=== PATIENT | female | born 1960 | race Caucasian/White ===

== ENCOUNTER → 2017-04-18 15:47 | Outpatient (REF) | payer BC, MEDICARE, SELFPAY ==
[2017-04-18 19:12] LABS: Alanine Aminotransferase 27 U/L (12-78); Albumin Level 3.7 gm/dL (3.4-5.0); Alkaline Phosphatase 91 U/L (46-116); Anion Gap 13.4 mEq/L (5-15); Aspartate Amino Transferase 21 U/L (15-37); Bilirubin,Total 0.2 mg/dL (0.2-1.0); Blood Urea Nitrogen 24 mg/dL (7-18); Calcium 8.5 mg/dL (8.5-10.1); Carbon Dioxide 28 mmol/L (21.0-32.0); Chloride 102 mmol/L (98-107); Creatinine,Serum 1.43 mg/dL (0.55-1.02); Estimated Glomerular Filt Rate 38 ml/min (>60); GFR (African American) 46 ML/MIN (>60); Globulin 3.8 gm/dl (1.3-3.2); Glucose 103 mg/dL (74-106); Potassium 4.4 mmoL/L (3.5-5.1); Sodium 139 mmol/L (136-145); Total Protein,Serum 7.5 gm/dL (6.4-8.2)
== END ==
LOC: LAB 15:47
PROVIDERS: Visit Provider Emergency Medicine
DX: R53.83 Other fatigue (principal)
CPT/HCPCS: 80053

== ENCOUNTER 2021-11-24 12:20 | Emergency (ER) | payer MEDICARE, SELFPAY ==
[2021-11-24] VITALS (9 sets, daily range): BP systolic 95–133; BP diastolic 61–80; PULSE 60–69; RESP 8–18; TEMP 36.8; O2SAT 95–98; BMI 23.0
--- NOTE | 2021-11-24 12:53 | PC.NURSE ---
CRISTOPHER CHERRY at
--- NOTE | 2021-11-24 13:01 | HMH.EDGENADL ---
Discharge Plan Disposition Chief Complaint: Overdose Prescriptions Prescriptions: No Action docusate sodium [Stool Softener] 100 mg capsule 100 mg PO QDAY clonidine HCl 0.1 mg tablet 0.1 mg PO BID Qty: 180 0RF nifedipine 60 mg tablet extended release 24hr 60 mg PO QDAY Qty: 90 0RF hydrochlorothiazide 25 mg tablet 25 mg PO QDAY Qty: 90 0RF quetiapine 100 mg tablet 100 mg PO QHS Qty: 90 0RF hydroxyzine HCl 50 mg tablet 50 mg PO TID-QID PRN (Reason: anxiety) Qty: 90 0RF tizanidine 4 mg tablet 4 mg PO TID PRN (Reason: muscle spasticity) Qty: 90 0RF gabapentin 100 mg capsule 100 mg PO TID Qty: 21 0RF Rx Instructions: Step 1 fentanyl 25 mcg/hr patch 72 hour 1 patch TD Q72H Qty: 10 0RF gabapentin 300 mg capsule 300 mg PO TID Qty: 90 2RF Referrals Follow up/Referrals: Provider,Referral, MD [Referring] - See instructions Activity Restrictions/Add. Instructions Additional Instructions/Restrictions: At this time was felt you are safe to be discharged home back to her nursing care facility. Please have your doctor evaluate your elevated kidney function. Please refrain from chewing on your fentanyl patches. If new or worsening symptoms please not hesitate to return for continued evaluation. Clinical Impressions Clinical Impression: Opiate or related narcotic overdose, Creatinine elevation Discharge ED Provider: Mehdi Mccollum General Adult HPI General Chief complaint: Overdose Stated complaint: ingestion Time Seen by Provider: 11/24/21 12:55 History of Present Illness HPI narrative: Patient is a 61-year-old female with past medical history of type 2 diabetes, hypothyroidism, prior CVA who presents to the emergency department for evaluation of toxic ingestion. Onset was acute, 30 minutes prior to arrival patient was found with her fentanyl patch in her mouth. Fentanyl patch was stated as 25 mcg however duration of action was for 3 days. Upon arrival patient has low respirations, is rousable to voice. Related Data Home Medications Medication Instructions Recorded Confirmed docusate sodium 100 mg capsule 100 mg PO QDAY 04/18/17 (Stool Softener) Previous Rx's Medication Instructions Recorded clonidine HCl 0.1 mg tablet 0.1 mg PO BID #180 tabs 06/20/18 hydrochlorothiazide 25 mg tablet 25 mg PO QDAY #90 tabs 06/20/18 nifedipine 60 mg tablet,extended 60 mg PO QDAY #90 tabs 06/20/18 release 24 hr quetiapine 100 mg tablet 100 mg PO QHS #90 tabs 06/20/18 hydroxyzine HCl 50 mg tablet 50 mg PO TID-QID PRN anxiety #90 09/20/18 tabs tizanidine 4 mg tablet 4 mg PO TID PRN muscle spasticity 09/20/18 #90 tabs gabapentin 100 mg capsule 100 mg PO TID #21 caps 10/11/21 fentanyl 25 mcg/hr transdermal 1 patch transdermal Q72H #10 ea 10/25/21 patch gabapentin 300 mg capsule 300 mg PO TID #90 caps 11/12/21 Allergies Allergy/AdvReac Type Severity Reaction Status Date / Time adhesive tape Allergy Unknown Verified 04/18/17 15:27 cyclobenzaprine Allergy Unknown Verified 04/18/17 15:27 [CYCLOBENZAPRINE] hyoscyamine [HYOSCYAMINE] Allergy Unknown Verified 04/18/17 15:27 latex [LATEX] Allergy Unknown Verified 04/18/17 15:27 methocarbamol [METHOCARBAMOL] Allergy Unknown Verified 04/18/17 15:27 PFSH PFSH Social History Smoking Status: Never smoker alcohol intake: never substance use type: former substance user, marijuana, opiates and prescription drug current occupational status: unemployed ROS Obtained: Yes All systems reviewed & no additional complaints except as documented Physical Exam General General appearance: in no apparent distress and lethargic Head Head exam: atraumatic and normocephalic Eye Eye exam: Present PERRL and EOMI ENT ENT exam: Present mucous membranes moist Neck Neck exam: Present normal inspection Chest Chest inspection: Present normal inspection and symmetric chest wall rise Respiratory Respira
[2021-11-24 13:17] LABS: Alanine Aminotransferase 13 U/L (12-78); Albumin Level 2.5 g/dl (3.5-5.0); Albumin/Globulin Ratio 0.7 (1.1-1.8); Alkaline Phosphatase 219 U/L (38-126); Anion Gap 11.1 mEq/L (5-15); Aspartate Amino Transferase 19 U/L (14-36); Blood Urea Nitrogen 47 mg/dl (7-17); Carbon Dioxide 20 mmol/L (22.0-30.0); Chloride 113 mmol/L (98-107); Creatinine Clearance Estimated 22 mL/min (50-200); Estimated Glomerular Filt Rate 20 ml/min (>60); GFR (African American) 24 ML/MIN (>60); Globulin 3.7 g/dL (1.3-3.2); Glucose 94 mg/dl (74-100); Potassium 5.1 mmoL/L (3.5-5.1); Sodium 139 mmol/L (136-145); Total Protein,Serum 6.2 g/dl (6.3-8.2)
[2021-11-24 13:19] LABS: Basophils # 0.1 K/mm3 (0-0.2); Basophils % 0.7 % (0.1-2.0); Eosinophils # 0.1 K/mm3 (0.0-0.4); Eosinophils % 1.9 % (0.1-12.0); Hematocrit 30.4 % (37.0-47.0); Hemoglobin 9.1 g/dL (12.2-16.2); Lymphocytes # 1.4 K/mm3 (0.7-4.5); Lymphocytes % 19.9 % (10-50); Mean Corpuscular HGB Conc 29.8 g/dL (31.8-35.4); Mean Corpuscular Hemoglobin 33.1 pg (27.0-31.2); Mean Corpuscular Volume 110.9 fl (81-99); Mean Platelet Volume 8.5 fl (7.4-10.4); Monocytes # 0.3 K/mm3 (0.1-1.0); Monocytes % 4.1 % (1.7-9.3); Neutrophils # 5.2 K/mm3 (1.8-7.8); Neutrophils % 73.5 % (37.0-80.0); Platelet Count 509 K/mm3 (142-424); Red Blood Count 2.74 M/mm3 (4.20-5.40); Red Cell Distribution Width 18.6 % (11.5-17.5); White Blood Count 7.1 K/mm3 (4.8-10.8)
[2021-11-24 13:20] LABS: Bilirubin,Total < 0.1 mg/dl (0.2-1.3)
--- NOTE | 2021-11-24 14:06 | ECG_ITS ---
APPROVED REPORT Exam: Resting ECG HR:64 bpm ECG Measurements Heart Rate 64 AXES PA 155 P 79 QRSd 86 QRS 85 QT 408 T 85 QTc 417 Conclusion SINUS RHYTHM NORMAL ECG UNCONFIRMED REPORT Electronically signed by : Sukhwinder Schilling MD 11/25/2021 11:24:46
--- NOTE | 2021-11-24 14:32 | PC.NURSE ---
checked on pt at this time, offered pt a lunch tray pt declined but states would take a drink. ER MD okayed for pt to have something to drink. Notified ER MD pt is awake, alert and oriented and asked when she can go back to the [place] [facility].
--- NOTE | 2021-11-24 15:55 | PC.NURSE ---
rounded on pt. pt asked how much loger they were gonna be here. Checked with the ER doctor and he advised to tell her that she would be here at least another hour due to her condition at this time.
== END 2021-11-24 18:30 | disposition home or self-care (01) ==
PROVIDERS: Emergency Provider Emergency Medicine; PCP Emergency Medicine
DX: T40.411A Poisoning by fentanyl or fentanyl analogs, accidental (unintentional), initial encounter (principal)
CPT/HCPCS: 80053; 85025; 93005; 99284; J2310

== ENCOUNTER 2022-03-26 12:54 | Inpatient (IN) | payer MEDICARE, MEDICAID, SELFPAY ==
[2022-03-26] VITALS (13 sets, daily range): BP systolic 125–155; BP diastolic 66–92; PULSE 72–86; RESP 11–22; TEMP 36.4–37.3; O2SAT 95–100; BMI 23.0; BMI 24.7
--- NOTE | 2022-03-26 12:58 | XR_ITS ---
PROCEDURE INFORMATION: Exam: XR Chest Exam date and time: 03/26/2022 1:14 PM Age: 61 years old Clinical indication: Shortness of breath; Additional info: Sob/cp TECHNIQUE: Imaging protocol: Radiologic exam of the chest. Views: 1 view. COMPARISON: No relevant prior studies available. FINDINGS: Lungs: Right upper lobe and right lower lobe consolidations, worrisome for multifactorial pneumonia. Pleural spaces: No pleural effusion or pneumothorax Heart/Mediastinum: Aortic atherosclerosis. No cardiomegaly. Bones/joints: Unremarkable. IMPRESSION: 1. Right upper lobe and right lower lobe consolidations, worrisome for multifactorial pneumonia. 2. No pleural effusion or pneumothorax
[2022-03-26 13:06] LABS: Influenza A, PCR Not Detected (NotDetected); Influenza B, PCR Not Detected (NotDetected)
--- NOTE | 2022-03-26 13:11 | ECG_ITS ---
APPROVED REPORT Exam: Resting ECG HR:71 bpm ECG Measurements Heart Rate 71 AXES SD 156 P 46 QRSd 93 QRS 76 QT 408 T 3 QTc 430 Conclusion SINUS RHYTHM INCOMPLETE RIGHT BUNDLE BRANCH BLOCK [90+ ms QRS DURATION, TERMINAL R IN V1/V2, 40+ ms S IN I/aVL/V4/V5/V6] NONSPECIFIC T-WAVE ABNORMALITY BORDERLINE ECG UNCONFIRMED REPORT Electronically signed by : Sukhwinder Schilling MD 03/28/2022 20:04:15
[2022-03-26 13:31] LABS: Coronavirus 19, PCR Detected (NotDetected)
--- NOTE | 2022-03-26 13:36 | HMH.EDGENADL ---
Discharge Plan Disposition Patient Disposition: Admitted As Inpatient Condition: Fair Chief Complaint: Shortness of Breath/Dyspnea Prescriptions Prescriptions: No Action docusate sodium [Stool Softener] 100 mg capsule 100 mg PO QDAY clonidine HCl 0.1 mg tablet 0.1 mg PO BID Qty: 180 0RF nifedipine 60 mg tablet extended release 24hr 60 mg PO QDAY Qty: 90 0RF hydrochlorothiazide 25 mg tablet 25 mg PO QDAY Qty: 90 0RF quetiapine 100 mg tablet 100 mg PO QHS Qty: 90 0RF hydroxyzine HCl 50 mg tablet 50 mg PO TID-QID PRN (Reason: anxiety) Qty: 90 0RF tizanidine 4 mg tablet 4 mg PO TID PRN (Reason: muscle spasticity) Qty: 90 0RF gabapentin 100 mg capsule 100 mg PO TID Qty: 21 0RF Rx Instructions: Step 1 fentanyl 25 mcg/hr patch 72 hour 1 patch TD Q72H Qty: 10 0RF clonazepam [Klonopin] 0.5 mg tablet 0.5 mg PO BID Qty: 60 2RF gabapentin 300 mg capsule 300 mg PO TID Qty: 90 2RF hydrocodone-acetaminophen 5-325 mg tablet 1 tab PO BID Qty: 60 0RF Referrals Follow up/Referrals: Provider,Referral, MD [Referring] - See instructions Clinical Impressions Clinical Impression: Multifocal pneumonia, COVID-19, Acute respiratory failure with hypoxia, Acute on chronic renal failure, Hypomagnesemia Discharge ED Provider: Cristian Nichole General Adult HPI General Chief complaint: Shortness of Breath/Dyspnea Stated complaint: shortness of breathe Time Seen by Provider: 03/26/22 12:58 Mode of Arrival: EMS History of Present Illness HPI narrative: 61-year-old female from nursing facility, past history of CVA, chronic renal failure, mild dysplastic syndrome. Presents with shortness of breath and hypoxia was noted to be hypoxic on room air, is not usually on oxygen. Is currently on 3 L/min via nasal cannula and running in the mid 90s. She reports cough, subjective fever, subjective dyspnea. Denies any chest pain, nausea, vomiting. Symptoms are worse with exertion. At time of interview, she does ask me if she can go out and have a cigarette. Related Data Home Medications Medication Instructions Recorded Confirmed docusate sodium 100 mg capsule 100 mg PO QDAY 04/18/17 02/21/22 (Stool Softener) Previous Rx's Medication Instructions Recorded clonidine HCl 0.1 mg tablet 0.1 mg PO BID #180 tabs 06/20/18 hydrochlorothiazide 25 mg tablet 25 mg PO QDAY #90 tabs 06/20/18 nifedipine 60 mg tablet,extended 60 mg PO QDAY #90 tabs 06/20/18 release 24 hr quetiapine 100 mg tablet 100 mg PO QHS #90 tabs 06/20/18 hydroxyzine HCl 50 mg tablet 50 mg PO TID-QID PRN anxiety #90 09/20/18 tabs tizanidine 4 mg tablet 4 mg PO TID PRN muscle spasticity 09/20/18 #90 tabs gabapentin 100 mg capsule 100 mg PO TID #21 caps 10/11/21 fentanyl 25 mcg/hr transdermal 1 patch transdermal Q72H #10 ea 10/25/21 patch clonazepam 0.5 mg tablet (Klonopin) 0.5 mg PO BID #60 tabs 12/13/21 gabapentin 300 mg capsule 300 mg PO TID #90 caps 02/11/22 hydrocodone 5 mg-acetaminophen 325 1 tab PO BID #60 tabs 03/17/22 mg tablet Allergies Allergy/AdvReac Type Severity Reaction Status Date / Time adhesive tape Allergy Unknown Verified 02/21/22 18:37 cyclobenzaprine Allergy Unknown Verified 02/21/22 18:37 [CYCLOBENZAPRINE] hyoscyamine [HYOSCYAMINE] Allergy Unknown Verified 02/21/22 18:37 latex [LATEX] Allergy Unknown Verified 02/21/22 18:37 methocarbamol [METHOCARBAMOL] Allergy Unknown Verified 02/21/22 18:37 [facility] Disclaimer: The information contained in this section may have been updated after the patient was seen, as this information can be updated by other users. Social History Smoking Status: Current every day smoker tobacco type: cigarettes packs per day: 1 alcohol intake: never substance use type: former substance user, marijuana, opiates and prescription drug current occupational status: unemployed Tra
[2022-03-26 15:14] LABS: Basophils % 0.4 % (0.1-2.0); Eosinophils % 0.5 % (0.1-12.0); Hematocrit 28.9 % (37.0-47.0); Lymphocytes # 0.9 K/mm3 (0.7-4.5); Lymphocytes % 19.2 % (10-50); Mean Corpuscular Hemoglobin 32.7 pg (27.0-31.2); Mean Corpuscular Volume 105.5 fl (81-99); Mean Platelet Volume 8.3 fl (7.4-10.4); Monocytes # 0.3 K/mm3 (0.1-1.0); Monocytes % 5.7 % (1.7-9.3); Neutrophils # 3.6 K/mm3 (1.8-7.8); Neutrophils % 74.3 % (37.0-80.0); Platelet Count 275 K/mm3 (142-424); Red Blood Count 2.74 M/mm3 (4.20-5.40); White Blood Count 4.8 K/mm3 (4.8-10.8)
[2022-03-26 15:17] LABS: Chloride 109 mmol/L (98-107); Potassium 4.2 mmoL/L (3.5-5.1); Sodium 140 mmol/L (136-145)
[2022-03-26 15:20] LABS: Alanine Aminotransferase 9 U/L (12-78); Albumin/Globulin Ratio 0.8 (1.1-1.8); Alkaline Phosphatase 116 U/L (38-126); Anion Gap 13.2 mEq/L (5-15); Aspartate Amino Transferase 21 U/L (14-36); Bilirubin,Total 0.4 mg/dl (0.2-1.3); Blood Urea Nitrogen 58 mg/dl (7-17); Calcium 7.1 mg/dl (8.4-10.2); Carbon Dioxide 22 mmol/L (22.0-30.0); Creatinine Clearance Estimated 11 mL/min (50-200); Estimated Glomerular Filt Rate 9 ml/min (>60); GFR (African American) 11 ML/MIN (>60); Globulin 3.6 g/dL (1.3-3.2); Glucose 94 mg/dl (74-100); Total Protein,Serum 6.6 g/dl (6.3-8.2)
[2022-03-26 15:21] LABS: Magnesium 1.2 mg/dl (1.6-2.3)
[2022-03-26 15:30] LABS: Lactic Acid < 0.5 mmol/L (0.7-2.1); NT Pro Brain Natriuretic Pep. 12500 pg/mL (0-125)
--- NOTE | 2022-03-26 15:31 | PC.NURSE ---
critical lab called. notified
[2022-03-26 15:33] LABS: Troponin I 0.02 ng/ml (0.00-0.034)
--- NOTE | 2022-03-26 15:50 | PC.NURSE ---
ER waiting carbonizer tester back from dr. hull
--- NOTE | 2022-03-26 16:00 | PC.NURSE ---
workers' compensation claims supervisor Agustina notified of admission
[2022-03-26 16:05] LABS: Procalcitonin 0.694 ng/mL (0.0-2.0)
[2022-03-26 16:14] LABS: VBG Base Excess -9.2 mmol/L (-2.4-2.3); VBG Oxygen Saturation 93.3 % (50-70); VBG PO2 73.5 mmol/L (28-40); VBG Total CO2 20.6 mmol/L (23-27)
[2022-03-26 16:19] LABS: VBG PH 7.19 mmol/L (7.31-7.41)
[2022-03-26 16:20] LABS: VBG PCO2 51.3 mmol/L (35-51)
--- NOTE | 2022-03-26 18:05 | EXP.HP ---
History of Present Illness *Admission Date: 03/26/22 *Reason for visit:: Shortness of breath *History of present illness: Ms. Dupree is a 61-year-old female who resides at a long-term nursing facility. Past history of right-sided CVA with left-sided deficits, chronic kidney disease, myelo dysplastic syndrome, tobacco use disorder, chronic pain, and protein in who presented to the ER from her facility due to increased shortness of breath and hypoxia. Generally on room air at her [facility]. Requiring 3 L via nasal cannula on arrival to the ER. Reports that she has had a cough, subjective fevers, and worsening shortness of breath. Denies any chest pain, nausea, vomiting, confusion. Symptoms worse with exertion. She gets around in a wheelchair due to her left-sided paralysis. Continues to smoke. On work-up chest imaging concerning for multifocal pneumonia. Positive for COVID. Blood gas obtained showing respiratory acidosis on VBG. Transition to BiPAP. Medicine consulted for admission. On interview, patient is initially laying in bed covered by a blanket. Tolerating BiPAP. Has not had any further history from above. No new complaints. Hemodynamically stable. [facility] Disclaimer: The information contained in this section may have been updated after the patient was seen, as this information can be updated by other users. Medical History (Updated 03/26/22 @ 18:33 by Guillermo Bertrand MD) Chronic back pain greater than 3 months duration CKD (chronic kidney disease) CVA (cerebral vascular accident) Myelodysplastic syndrome Social History Smoking Status: Current every day smoker tobacco type: cigarettes packs per day: 1 alcohol intake: never substance use type: former substance user, marijuana, opiates and prescription drug current occupational status: unemployed Travel in the last 8 weeks: None Review of Systems Review of Systems Review of systems (narrative): 14 point review of systems performed, pertinent positives and negatives as per HPI *Neurologic Neurologic: Reports system reviewed and no additional complaints, except as documented Meds Home Medications and Allergies Home Medications Medication Instructions Recorded Confirmed Type amlodipine 10 mg tablet 10 mg PO DAILY blood pressure 03/26/22 03/26/22 History apixaban 2.5 mg tablet (Eliquis) 2.5 mg PO BID Blood thinner 03/26/22 03/26/22 History carvedilol 3.125 mg tablet 3.125 mg PO BID blood pressure 03/26/22 03/26/22 History clonazepam 0.5 mg tablet (Klonopin) 0.5 mg PO BID Anxiety 03/26/22 03/26/22 History duloxetine 30 mg capsule,delayed 30 mg PO DAILY mood 03/26/22 03/26/22 History release gabapentin 300 mg capsule 300 mg PO TID Pain 03/26/22 03/26/22 History hydrocodone 5 mg-acetaminophen 325 1 tab PO BID Pain 03/26/22 03/26/22 History mg tablet levothyroxine 75 mcg tablet 75 mcg PO DAILY per md 03/26/22 03/26/22 History lisinopril 5 mg tablet 5 mg PO DAILY blood pressure 03/26/22 03/26/22 History pantoprazole 40 mg tablet,delayed 40 mg PO DAILY GERD 03/26/22 03/26/22 History release (Protonix) quetiapine 100 mg tablet 100 mg PO QHS mood 03/26/22 03/26/22 History New Prescriptions to Start Prescriptions: Allergies Allergy/AdvReac Type Severity Reaction Status Date / Time adhesive tape Allergy Unknown Verified 02/21/22 18:37 cyclobenzaprine Allergy Unknown Verified 02/21/22 18:37 [CYCLOBENZAPRINE] hyoscyamine [HYOSCYAMINE] Allergy Unknown Verified 02/21/22 18:37 latex [LATEX] Allergy Unknown Verified 02/21/22 18:37 methocarbamol [METHOCARBAMOL] Allergy Unknown Verified 02/21/22 18:37 Exam Data for Last 24 hours Vital signs and Labs for Last 24 Hours: Temp Pulse Resp BP Pulse Ox 98.5 F 78 20 147/76 H 97 03/26/22 13:00 03/26/22 17:00 03/26/22 17:00 03/26/22 17:00 03/26/22 17:00 Laboratory Results - last 24 hr 03/26/22 13:02: SARS-CoV-2 (PCR)
[2022-03-26 18:14] LABS: Troponin I 0.02 ng/ml (0.00-0.034)
--- NOTE | 2022-03-26 18:32 | PC.NURSE ---
called suresh comer rn
--- NOTE | 2022-03-26 18:57 | PC.NURSE ---
Pt arrived to the floor at this time.
[2022-03-26 19:50] LABS: ABG Base Excess -7.3 mmol/L (-2.4-2.3); ABG HCO3 18.9 mmhg (22.0-26.0); ABG Oxygen Saturation 98 % (90-100); ABG PCO2 38.3 mmhg (35.0-45.0); ABG PH 7.31 mmol/L (7.35-7.45); ABG PO2 103.4 mmhg (80-100); ABG TCO2 20.1 mmhg (23-27); Allen's Test Y; Oxygen 35 %; Source Right Radial; Vent Rate 22
[2022-03-26 19:59] LABS: Troponin I 0.01 ng/ml (0.00-0.034)
--- NOTE | 2022-03-26 21:32 | PC.NURSE ---
yvonne locke notified this rn could remove bipap and place on nasal cannula, pt was on room air for about 10 minutes with sats in 90's, but did dip down into high 80's so place 2LNC on pt and sats 95%
[2022-03-26 23:00] LABS: Anion Gap 13.7 mEq/L (5-15); Blood Urea Nitrogen 69 mg/dl (7-17); Carbon Dioxide 19 mmol/L (22.0-30.0); Chloride 112 mmol/L (98-107); Creatinine Clearance Estimated 12 mL/min (50-200); Estimated Glomerular Filt Rate 9 ml/min (>60); GFR (African American) 10 ML/MIN (>60); Glucose 128 mg/dl (74-100); Potassium 4.7 mmoL/L (3.5-5.1); Sodium 140 mmol/L (136-145)
[2022-03-27] VITALS (10 sets, daily range): BP systolic 124–164; BP diastolic 67–89; PULSE 66–80; RESP 8–20; TEMP 36.5–36.8; O2SAT 94–100; BMI 24.5
[2022-03-27 03:24] LABS: Chloride 112 mmol/L (98-107); Potassium 4.9 mmoL/L (3.5-5.1); Sodium 139 mmol/L (136-145)
[2022-03-27 03:27] LABS: Blood Urea Nitrogen 63 mg/dl (7-17); Creatinine Clearance Estimated 12 mL/min (50-200); Estimated Glomerular Filt Rate 9 ml/min (>60)
[2022-03-27 03:28] LABS: Anion Gap 13.9 mEq/L (5-15); Carbon Dioxide 18 mmol/L (22.0-30.0); Glucose 135 mg/dl (74-100)
[2022-03-27 03:30] LABS: GFR (African American) 11 ML/MIN (>60)
[2022-03-27 08:14] LABS: Chloride 114 mmol/L (98-107); Potassium 5.3 mmoL/L (3.5-5.1); Sodium 139 mmol/L (136-145)
[2022-03-27 08:17] LABS: Alanine Aminotransferase 7 U/L (12-78); Albumin Level 2.6 g/dl (3.5-5.0); Albumin/Globulin Ratio 0.8 (1.1-1.8); Alkaline Phosphatase 80 U/L (38-126); Aspartate Amino Transferase 29 U/L (14-36); Bilirubin,Total 0.6 mg/dl (0.2-1.3); Blood Urea Nitrogen 62 mg/dl (7-17); Calcium 7.3 mg/dl (8.4-10.2); Carbon Dioxide 14 mmol/L (22.0-30.0); Creatinine Clearance Estimated 12 mL/min (50-200); Estimated Glomerular Filt Rate 9 ml/min (>60); GFR (African American) 11 ML/MIN (>60); Globulin 3.3 g/dL (1.3-3.2); Glucose 138 mg/dl (74-100); Total Protein,Serum 5.9 g/dl (6.3-8.2)
[2022-03-27 08:18] LABS: Magnesium 1.6 mg/dl (1.6-2.3)
[2022-03-27 08:27] LABS: Anion Gap 16.3 mEq/L (5-15)
--- NOTE | 2022-03-27 11:00 | HMH.PHAINT1 ---
Pharmacy Intervention Comments: verified home medicaiton list using list from outpatient pharmacy
--- NOTE | 2022-03-27 12:57 | EXP.PHA.CONS ---
Pharmacy Consult Date: 03/27/22 Time: 12:58 Referring provider: WHIT Reason for Consult:: PHARMACY CONSULTED TO MANAGE VANCOMYCIN THERAPY Allergies Allergy/AdvReac Type Severity Reaction Status Date / Time adhesive tape Allergy Unknown Verified 02/21/22 18:37 cyclobenzaprine Allergy Unknown Verified 02/21/22 18:37 [CYCLOBENZAPRINE] hyoscyamine [HYOSCYAMINE] Allergy Unknown Verified 02/21/22 18:37 latex [LATEX] Allergy Unknown Verified 02/21/22 18:37 methocarbamol [METHOCARBAMOL] Allergy Unknown Verified 02/21/22 18:37 Home Medications Medication Instructions Recorded Confirmed Type amlodipine 10 mg tablet 10 mg PO DAILY blood pressure 03/26/22 03/26/22 History apixaban 2.5 mg tablet (Eliquis) 2.5 mg PO BID Blood thinner 03/26/22 03/26/22 History carvedilol 3.125 mg tablet 3.125 mg PO BID blood pressure 03/26/22 03/26/22 History clonazepam 0.5 mg tablet (Klonopin) 0.5 mg PO QIDP PRN anxierty 03/26/22 03/27/22 History duloxetine 30 mg capsule,delayed 30 mg PO DAILY Depression 03/26/22 03/26/22 History release gabapentin 300 mg capsule 300 mg PO TID Pain 03/26/22 03/26/22 History hydrocodone 5 mg-acetaminophen 325 1 tab PO BID Pain 03/26/22 03/26/22 History mg tablet levothyroxine 75 mcg tablet 75 mcg PO DAILY hypothyroidism 03/26/22 03/26/22 History lisinopril 5 mg tablet 5 mg PO DAILY blood pressure 03/26/22 03/26/22 History pantoprazole 40 mg tablet,delayed 40 mg PO DAILY acid reflux 03/26/22 03/26/22 History release (Protonix) quetiapine 100 mg tablet 100 mg PO HS sleep/mood 03/26/22 03/27/22 History sucralfate 1 gram tablet 1 g PO TIDWMEAL stomach 03/27/22 03/27/22 History New Prescriptions to Start Prescriptions: Height: 1.63 m Weight: 65.317 kg Laboratory Results:: Laboratory Results - last 24 hr 03/26/22 13:02: SARS-CoV-2 (PCR) Detected A, Influenza A Untype (PCR) Not detected, Influenza Type B (PCR) Not detected 03/26/22 13:43: VBG pH 7.19 L, VBG pCO2 51.3 H, VBG pO2 73.5 H, VBG HCO3 19.0 L, VBG Total CO2 20.6 L, VBG O2 Saturation 93.3 H, VBG Base Excess -9.2 L 03/26/22 15:00: WBC 4.8, RBC 2.74 L, Hgb 9.0 L, Hct 28.9 L, MCV 105.5 H, MCH 32.7 H, MCHC 31.0 L, RDW 15.0, Plt Count 275, MPV 8.3, Neut % (Auto) 74.3, Lymph % (Auto) 19.2, Dickens % (Auto) 5.7, Eos % (Auto) 0.5, Baso % (Auto) 0.4, Neut # (Auto) 3.6, Lymph # (Auto) 0.9, Dickens # (Auto) 0.3, Eos # (Auto) 0.0, Baso # (Auto) 0.0 03/26/22 15:00: Sodium 140, Potassium 4.2, Chloride 109 H, Carbon Dioxide 22, Anion Gap 13.2, BUN 58 H, Creatinine 5.00 H, Estimated Creat Clear 11, Estimated GFR 9 L*, Est GFR ( Amer) 11 L*, Glucose 94, Calcium 7.1 L, Magnesium 1.2 L, Total Bilirubin 0.4, AST 21, ALT 9 L, Alkaline Phosphatase 116, Troponin I 0.02, NT-Pro-B Natriuret Pep 29238 H, Total Protein 6.6, Albumin 3.0 L, Globulin 3.6 H, Albumin/Globulin Ratio 0.8 L 03/26/22 15:00: Lactate < 0.5 L 03/26/22 15:00: Procalcitonin 0.694 03/26/22 17:20: Troponin I 0.02 03/26/22 19:09: Specimen Source Right radial, O2 % 35, ABG pH 7.31 L, ABG pCO2 38.3, ABG pO2 103.4 H, ABG HCO3 18.9 L, ABG Total CO2 20.1 L, ABG O2 Saturation 98, ABG Base Excess -7.3 L, Javid Test Y, Vent Rate 22 03/26/22 19:22: Troponin I 0.01 03/26/22 22:10: Sodium 140, Potassium 4.7, Chloride 112 H, Carbon Dioxide 19 L, Anion Gap 13.7, BUN 69 H, Creatinine 5.10 H, Estimated Creat Clear 12, Estimated GFR 9 L*, Est GFR ( Amer) 10 L*, Glucose 128 H D, Calcium 7.0 L 03/27/22 03:05: Sodium 139, Potassium 4.9, Chloride 112 H, Carbon Dioxide 18 L, Anion Gap 13.9, BUN 63 H, Creatinine 4.90 H, Estimated Creat Clear 12, Estimated GFR 9 L*, Est GFR ( Amer) 11 L*, Glucose 135 H, Calcium 7.0 L 03/27/22 07:56: Sodium 139, Potassium 5.3 H, Chloride 114 H, Carbon Dioxide 14 L, Anion Gap 16.3 H, BUN 62 H, Creatinine 4.90 H, Estimated Creat Clear 12, Estimated GFR 9 L*, Est GFR ( Amer) 11 L*, Glucose 138 H, Calcium 7.3 L, Magnesium 1.6 D, Total Bilirubin 0.6, AST 29 D, ALT 7 L, Alkaline Phosphatase 80, Total
--- NOTE | 2022-03-27 15:13 | PC.NURSE ---
Report given to Sally Man RN who assumes care of patient at this time
--- NOTE | 2022-03-27 19:17 | EXP.ACUTE.PN ---
Subjective *Date: 03/27/22 *Time: 19:17 Interval history: Patient more alert and interactive today. Asking about her pain medication. Trying to negotiate dosages. Labs remained stable today. Denies nausea, vomiting, chest pain, shortness of breath. Stable on baseline 2 L nasal cannula oxygen. No significant cough. Denies confusion or headache. Medical Exam Vital signs and Labs for Last 24 Hours: Vital Signs Temp Pulse Pulse Resp BP BP Pulse Ox 03/27/22 18:53 03/27/22 17:36 70 03/27/22 16:00 77 20 143/79 H 98 03/27/22 12:00 70 03/27/22 12:00 98.2 F 75 20 139/84 94 L 03/27/22 08:00 100 03/27/22 10:00 75 17 145/87 H 99 03/27/22 08:00 97.9 F 03/27/22 08:00 80 03/27/22 08:00 73 16 164/89 H 100 03/27/22 06:00 74 15 145/75 H 99 03/27/22 04:00 67 03/27/22 04:00 98.1 F 03/27/22 04:00 66 8 L 130/67 100 03/27/22 02:00 69 12 135/75 100 03/27/22 00:00 97.7 F 71 10 L 124/68 100 03/27/22 00:00 71 03/26/22 22:00 81 11 L 99 03/26/22 20:00 98 03/26/22 20:00 97.6 F 83 11 L 147/79 H 98 03/26/22 20:00 97.6 F 03/26/22 19:30 99.1 F 80 22 147/79 H FiO2 03/27/22 18:53 28 03/27/22 17:36 03/27/22 16:00 03/27/22 12:00 03/27/22 12:00 03/27/22 08:00 03/27/22 10:00 03/27/22 08:00 03/27/22 08:00 03/27/22 08:00 03/27/22 06:00 03/27/22 04:00 03/27/22 04:00 03/27/22 04:00 03/27/22 02:00 03/27/22 00:00 03/27/22 00:00 03/26/22 22:00 03/26/22 20:00 03/26/22 20:00 03/26/22 20:00 03/26/22 19:30 Intake and Output 03/27/22 03/27/22 03/27/22 07:59 15:59 23:59 Intake Total 0 / 1454 360 / 1454 1094 / 1454 Output Total 550 / 950 400 / 950 Balance -550 / 504 360 / 504 694 / 504 Intake: Intake, Oral Amount 0 / 840 360 / 840 480 / 840 Intake, Total IV Amount 614 / 614 Magnesium Sulfate in Water 2 gm 50 / 50 In 50 ml @ 50 mls/hr IV ONCE ONE Rx#:[id number] Ringers Solution,Lactated 1,000 564 / 564 ml @ 100 mls/hr IV .Q10H [facility] Rx#:[id number] Output: Output, Urine Amount 550 / 950 400 / 950 Other: Number of Unmeasured Voids 0 0 0 Weight 65.317 kg 65.317 kg Patient Weight 03/27/22 23:59 Weight 65.317 kg Laboratory Results - last 24 hr 03/26/22 19:09: Specimen Source Right radial, O2 % 35, ABG pH 7.31 L, ABG pCO2 38.3, ABG pO2 103.4 H, ABG HCO3 18.9 L, ABG Total CO2 20.1 L, ABG O2 Saturation 98, ABG Base Excess -7.3 L, Javid Test Y, Vent Rate 22 03/26/22 19:22: Troponin I 0.01 03/26/22 22:10: Sodium 140, Potassium 4.7, Chloride 112 H, Carbon Dioxide 19 L, Anion Gap 13.7, BUN 69 H, Creatinine 5.10 H, Estimated Creat Clear 12, Estimated GFR 9 L*, Est GFR ( Amer) 10 L*, Glucose 128 H D, Calcium 7.0 L 03/27/22 03:05: Sodium 139, Potassium 4.9, Chloride 112 H, Carbon Dioxide 18 L, Anion Gap 13.9, BUN 63 H, Creatinine 4.90 H, Estimated Creat Clear 12, Estimated GFR 9 L*, Est GFR ( Amer) 11 L*, Glucose 135 H, Calcium 7.0 L 03/27/22 07:56: Sodium 139, Potassium 5.3 H, Chloride 114 H, Carbon Dioxide 14 L, Anion Gap 16.3 H, BUN 62 H, Creatinine 4.90 H, Estimated Creat Clear 12, Estimated GFR 9 L*, Est GFR ( Amer) 11 L*, Glucose 138 H, Calcium 7.3 L, Magnesium 1.6 D, Total Bilirubin 0.6, AST 29 D, ALT 7 L, Alkaline Phosphatase 80, Total Protein 5.9 L, Albumin 2.6 L D, Globulin 3.3 H, Albumin/Globulin Ratio 0.8 L I & O for Labs for Last 24 Hours: Intake & Output 03/24/22 03/25/22 03/26/22 03/27/22 23:59 23:59 23:59 23:59 Intake Total 1454 / 1454 Output Total 950 / 950 Balance 504 / 504 Weight 65.317 kg 65.317 kg Constitutional: Present no acute distress, average body habitus and chronically ill appearing Head: Present atraumatic and normocephalic ENT: Present normal exam Neck: Present normal inspection Respiratory: Present normal respirat
[2022-03-27 19:46] LABS: Basophils % 0.2 % (0.1-2.0); Eosinophils % 0.6 % (0.1-12.0); Hematocrit 24.9 % (37.0-47.0); Lymphocytes # 0.6 K/mm3 (0.7-4.5); Lymphocytes % 15.5 % (10-50); Mean Corpuscular HGB Conc 32.3 g/dL (31.8-35.4); Mean Corpuscular Hemoglobin 32.8 pg (27.0-31.2); Mean Corpuscular Volume 101.4 fl (81-99); Mean Platelet Volume 8.7 fl (7.4-10.4); Monocytes # 0.1 K/mm3 (0.1-1.0); Monocytes % 3.2 % (1.7-9.3); Neutrophils # 3.1 K/mm3 (1.8-7.8); Neutrophils % 80.4 % (37.0-80.0); Platelet Count 375 K/mm3 (142-424); Red Blood Count 2.45 M/mm3 (4.20-5.40); Red Cell Distribution Width 14.8 % (11.5-17.5); White Blood Count 3.9 K/mm3 (4.8-10.8)
[2022-03-27 19:51] LABS: Chloride 107 mmol/L (98-107); Potassium 4.6 mmoL/L (3.5-5.1); Sodium 135 mmol/L (136-145)
[2022-03-27 19:54] LABS: Blood Urea Nitrogen 65 mg/dl (7-17); Carbon Dioxide 18 mmol/L (22.0-30.0); Creatinine Clearance Estimated 13 mL/min (50-200); Estimated Glomerular Filt Rate 9 ml/min (>60); GFR (African American) 11 ML/MIN (>60); Glucose 202 mg/dl (74-100)
[2022-03-27 19:56] LABS: Anion Gap 14.6 mEq/L (5-15)
[2022-03-28] VITALS: BP 130/70; PULSE 62; PULSE 70; RESP 16; TEMP 36.4; O2SAT 98
[2022-03-28 04:00] VITALS: BP 122/72; PULSE 56; PULSE 60; RESP 15; TEMP 36.6; O2SAT 97; BMI 25.3
--- NOTE | 2022-03-28 05:51 | PC.NURSE ---
No acute changes this shift. Pt has slept well t/o night. C/O discomfort to back at beginning of shift. Medicated per may. No additional complaints stated. Pt is currently on 1.5 L O2 NC. Crackles noted to bases. F/C draining to bedside with clear, yellow urine. Good output this shift. call light within reach.
[2022-03-28 06:54] LABS: Alanine Aminotransferase 8 U/L (12-78); Albumin Level 2.3 g/dl (3.5-5.0); Albumin/Globulin Ratio 0.8 (1.1-1.8); Alkaline Phosphatase 74 U/L (38-126); Anion Gap 9.7 mEq/L (5-15); Aspartate Amino Transferase 19 U/L (14-36); Bilirubin,Total 0.2 mg/dl (0.2-1.3); Blood Urea Nitrogen 77 mg/dl (7-17); Calcium 6.7 mg/dl (8.4-10.2); Carbon Dioxide 21 mmol/L (22.0-30.0); Chloride 108 mmol/L (98-107); Creatinine Clearance Estimated 13 mL/min (50-200); Estimated Glomerular Filt Rate 9 ml/min (>60); GFR (African American) 11 ML/MIN (>60); Globulin 2.8 g/dL (1.3-3.2); Glucose 103 mg/dl (74-100); Magnesium 1.9 mg/dl (1.6-2.3); Potassium 4.7 mmoL/L (3.5-5.1); Sodium 134 mmol/L (136-145); Total Protein,Serum 5.1 g/dl (6.3-8.2)
--- NOTE | 2022-03-28 07:27 | PC.NURSE ---
Critical labs reported to Niya ANN
[2022-03-28 08:00] VITALS: BP 130/91; PULSE 60; PULSE 63; RESP 20; TEMP 36.8; O2SAT 98
[2022-03-28 10:29] LABS: Vancomycin,Random 9.4 ug/ml
--- NOTE | 2022-03-28 10:40 | HMH.OTEV ---
OT Inpatient Evaluation Rehab OT IP Evaluation Start: 03/28/22 09:33 Freq: ONCE Status: Active Protocol: Document 03/28/22 10:32 [facility] (Rec: 03/28/22 10:40 [facility] [id number]) Rehab OT IP Assessment Subjective History Pt oriented x 3 on arrival. Pt agreeable to engage in therapy evaluation. Pt was admitted on 03/26/22 due to Shortness of breath from COVID -19. Prior to being in the hospital, pt [facility]. Pt was wheelchair bound, but able to transfer herself independently from surfaces. Pt reports she was independent with dressing and showering. Pt was dependent upon staff for completion of all IADLs. Pt has a past medical history of: Chronic back pain greater than 3 months duration CKD (chronic kidney disease) CVA (cerebral vascular accident) Myelodysplastic syndrome Subjective I don't want you to pull on me. Objective Patient Orientation Person,Place,Birthday Upper Extremity Gross ROM Min Limitation <25% Shoulder ROM Limitations Muscle Weakness Elbow ROM Limitations Muscle Weakness Wrist Limitations of Range of Motion Muscle Weakness Bed Mobility bed mobility-scooting,bed mobility - supine/sit,bed mobility - rolling Assist Level Supervision/Stand by Transfer Training Sit/Stand/Step Transfer Assist Level Minimal x 1 (25% assist) Chair Transfer Ability Minimal x 1 (25% assist) Chair Transfer Technique Sit to/from Ambulatory Lower Body Dressing Ability Standby Assistance Rehab OT IP prob,goals,plan Problems Date of Evaluation: 03/28/22 OT IP Problems Bed Mobility,Transfers,Balance ,Self care,Safety Rehab Potential Rehab Potential Good Equipment Needs Assistive Devices Rolling / Wheeled Walker, Wheelchair Plan OT intervention Plan Bed Mobility,Transfers,Balance ,Self care,Safety,Therapeutic
--- NOTE | 2022-03-28 11:23 | SW/DCPLANNER ---
Addendum entered by Maya Vargas 03/30/22 13:06: The plan for this patient is to return to [facility] today [facility] level of care. Addendum entered by Maya Vargas 03/29/22 09:11: I have updated Monse barrett/ Dima Melendez that patient is not medically stable for discharge today. Original Note: This patient currently resides at [facility] level of care per Monse. I will continue to follow up with Monse until patient is medically stable for discharge. Monse did confirm this patient can return being COVID positive. Patient may be ready for discharge tomorrow.
--- NOTE | 2022-03-28 11:37 | HMH.PTEV ---
Physical Therapy Evaluation Rehab PT IP Evaluation Start: 03/28/22 09:33 Freq: ONCE Status: Active Protocol: Document 03/28/22 09:15 [facility] (Rec: 03/28/22 11:37 PHON[facility] [id number]) Subjective/History History History 61 yowf adm to [facility] with resp failure, hypoxia, COVID PNA. She presents from [facility] and uses a w/c for all mobility, she is generally independent with all transfers. Subjective Subjective Currently she c/o feeling tired, but agrees to treatment . Rehab PT IP Eval Objective Appearance Patient Behavior Appropriate Patient Orientation Person,Place,Time Difficulty following instructions none Speech Pattern Clear Ambulation Patient Able to Ambulate No Balance Ability to Arise Able, uses arms to help Sitting Balance Steady, safe Standing Balance Steady, wide stance Dynamic Sitting Balance Ability Good Dynamic Standing Balance Ability Fair Transfers Bed Transfer Ability Minimal x 1 (25% assist) Chair Transfer Ability Minimal x 1 (25% assist) Sit to Stand Bed Transfer Ability Minimal x 1 (25% assist) Sit to Stand Chair Transfer Ability Minimal x 1 (25% assist) Rehab PT IP prob,goals,plan Problems Date of Evaluation: 03/28/22 PT IP Problems Bed Mobility,Transfers Rehab Potential Rehab Potential Good Plan PT Intervention Plan Bed Mobility,Transfers, Therapeutic Exercise PT Plan Frequency BID Duration LOS Discharge Goals Bed Transfer Ability Contact Guard/Hand Hold Sit to Stand Chair Transfer Ability Contact Guard/Hand Hold Discharge Plan PT Discharge Plan Pt is most appropriate to return to [facility] once medically stable. G -code Required No Eval Complexity Eval Charge Codes 52801 - Moderate Complexity PHYSICIAN CERTIFICATION: I certify the specified therapy services for Emily Dupree are required, authorized, and reviewed every 30 days.
--- NOTE | 2022-03-28 11:39 | P.CONPHA_ITS ---
Pharmacy Consult Date: 03/28/22 Time: 11:39 Referring provider: DR. OCAMPO Reason for Consult:: VANCOMYCIN LEVEL Allergies Allergy/AdvReac Type Severity Reaction Status Date / Time adhesive tape Allergy Unknown Verified 02/21/22 18:37 cyclobenzaprine Allergy Unknown Verified 02/21/22 18:37 [CYCLOBENZAPRINE] hyoscyamine [HYOSCYAMINE] Allergy Unknown Verified 02/21/22 18:37 latex [LATEX] Allergy Unknown Verified 02/21/22 18:37 methocarbamol [METHOCARBAMOL] Allergy Unknown Verified 02/21/22 18:37 Home Medications Medication Instructions Recorded Confirmed Type amlodipine 10 mg tablet 10 mg PO DAILY blood pressure 03/26/22 03/26/22 History apixaban 2.5 mg tablet (Eliquis) 2.5 mg PO BID Blood thinner 03/26/22 03/26/22 History carvedilol 3.125 mg tablet 3.125 mg PO BID blood pressure 03/26/22 03/26/22 History clonazepam 0.5 mg tablet (Klonopin) 0.5 mg PO QIDP PRN anxierty 03/26/22 03/27/22 History duloxetine 30 mg capsule,delayed 30 mg PO DAILY Depression 03/26/22 03/26/22 History release gabapentin 300 mg capsule 300 mg PO TID Pain 03/26/22 03/26/22 History hydrocodone 5 mg-acetaminophen 325 1 tab PO BID Pain 03/26/22 03/26/22 History mg tablet levothyroxine 75 mcg tablet 75 mcg PO DAILY hypothyroidism 03/26/22 03/26/22 History lisinopril 5 mg tablet 5 mg PO DAILY blood pressure 03/26/22 03/26/22 History pantoprazole 40 mg tablet,delayed 40 mg PO DAILY acid reflux 03/26/22 03/26/22 History release (Protonix) quetiapine 100 mg tablet 100 mg PO HS sleep/mood 03/26/22 03/27/22 History sucralfate 1 gram tablet 1 g PO TIDWMEAL stomach 03/27/22 03/27/22 History New Prescriptions to Start Prescriptions: Height: 1.63 m Weight: 67.302 kg Laboratory Results:: Laboratory Results - last 24 hr 03/27/22 19:20: WBC 3.9 L, RBC 2.45 L, Hgb 8.0 L, Hct 24.9 L, MCV 101.4 H, MCH 32.8 H, MCHC 32.3, RDW 14.8, Plt Count 375 D, MPV 8.7, Neut % (Auto) 80.4 H, Lymph % (Auto) 15.5, [place] % (Auto) 3.2, Eos % (Auto) 0.6, Baso % (Auto) 0.2, Neut # (Auto) 3.1, Lymph # (Auto) 0.6 L, [place] # (Auto) 0.1, Eos # (Auto) 0.0, Baso # (Auto) 0.0 03/27/22 19:20: Sodium 135 L, Potassium 4.6, Chloride 107, Carbon Dioxide 18 L, Anion Gap 14.6, BUN 65 H, Creatinine 4.80 H, Estimated Creat Clear 13, Estimated GFR 9 L*, Est GFR ( Amer) 11 L*, Glucose 202 H D, Calcium 7.0 L 03/28/22 05:58: Sodium 134 L, Potassium 4.7, Chloride 108 H, Carbon Dioxide 21 L , Anion Gap 9.7, BUN 77 H, Creatinine 4.80 H, Estimated Creat Clear 13, Estimated GFR 9 L*, Est GFR ( Amer) 11 L*, Glucose 103 H D, Calcium 6.7 L , Magnesium 1.9 D, Total Bilirubin 0.2, AST 19 D, ALT 8 L, Alkaline Phosphatase 74, Total Protein 5.1 L, Albumin 2.3 L D, Globulin 2.8, Albumin/Globulin Ratio 0.8 L 03/28/22 09:15: Random Vancomycin 9.4 Medical History: Medical History (Updated 03/26/22 @ 18:33 by Guillermo Ocampo MD) Chronic back pain greater than 3 months duration CKD (chronic kidney disease) CVA (cerebral vascular accident) Myelodysplastic syndrome Assessment and Plan Assessment and plan all Dx Assessment and Plan for all problems:: PATIENT'S VANCOMYCIN LEVEL WAS 9.4 MCG/ML THIS AM APPROXIMATELY 36 HOURS AFTER HER FIRST DOSE. RECOMMEND CONTINUING WITH VANCOMYCIN 1 GM Q36H AT THIS TIME.
[2022-03-28 12:00] VITALS: BP 138/92; PULSE 65; PULSE 72; RESP 18; TEMP 36.8; O2SAT 97
[2022-03-28 13:51] VITALS: BMI 25.2
[2022-03-28 14:15] LABS: Chloride 107 mmol/L (98-107); Potassium 4.8 mmoL/L (3.5-5.1); Sodium 134 mmol/L (136-145)
[2022-03-28 14:18] LABS: Anion Gap 14.8 mEq/L (5-15); Blood Urea Nitrogen 65 mg/dl (7-17); Calcium 6.7 mg/dl (8.4-10.2); Carbon Dioxide 17 mmol/L (22.0-30.0); Creatinine Clearance Estimated 13 mL/min (50-200); Estimated Glomerular Filt Rate 10 ml/min (>60); GFR (African American) 12 ML/MIN (>60); Glucose 169 mg/dl (74-100)
--- NOTE | 2022-03-28 14:22 | PC.NURSE ---
1340 report given to arianne holden rn
[2022-03-28 16:00] VITALS: BP 129/72; PULSE 65; PULSE 81; RESP 18; TEMP 36.8; O2SAT 96
--- NOTE | 2022-03-28 17:32 | PC.NURSE ---
PT IS RESTING IN BED. ALERT AND ORIENTED X4. EATING AND DRINKING WELL. PT HAS VOIDED 100 ML'S SINCE CATHETER WAS DC'D. PT TOLERATED SITTING UP IN THE CHAIR FOR A FEW HOURS THIS SHIFT. O2 SATURATION 92-95% ON RA. CREATININE HAS SLIGHTLY IMPROVED. WILL CONTINUE TO MONITOR.
--- NOTE | 2022-03-28 17:33 | EXP.ACUTE.PN ---
Subjective *Date: 03/28/22 *Time: 17:33 Interval history: Patient alert and interactive. Asking when she can go back to her nursing facility. Tolerating p.o. intake. Responding to IV fluids with slight improvement in creatinine. Denies nausea, vomiting, diarrhea. Pain stable. Stable oxygen requirement. No cough or shortness of breath. No acute events overnight Medical Exam Vital signs and Labs for Last 24 Hours: Vital Signs Temp Pulse Pulse Resp BP Pulse Ox FiO2 03/28/22 12:00 65 03/28/22 12:00 98.3 F 72 18 138/92 H 97 03/28/22 08:00 98 03/28/22 08:00 60 03/28/22 08:00 98.2 F 63 20 130/91 H 98 03/28/22 00:00 70 03/27/22 20:00 80 03/28/22 04:00 60 03/28/22 04:00 97.9 F 56 L 15 122/72 97 03/28/22 00:00 97.6 F 62 16 130/70 98 03/27/22 20:00 98.3 F 72 16 135/85 94 L 03/27/22 18:53 28 03/27/22 17:36 70 Intake and Output 03/28/22 03/28/22 03/28/22 07:59 15:59 23:59 Intake Total 600 / 2788 2188 / 2788 Output Total 650 / 1050 400 / 1050 Balance -650 / 1738 200 / 1738 2188 / 1738 Intake: Intake, Oral Amount 600 / 600 Intake, Total IV Amount 2188 / 2188 Ringers Solution,Lactated 1,000 2188 / 2188 ml @ 100 mls/hr IV .Q10H [facility] Rx#:[id number] Output: Output, Urine Amount 650 / 1050 400 / 1050 Other: Number of Unmeasured Voids 0 0 Weight 67.302 kg 67 kg Patient Weight 03/28/22 23:59 Weight 67 kg Laboratory Results - last 24 hr 03/27/22 19:20: WBC 3.9 L, RBC 2.45 L, Hgb 8.0 L, Hct 24.9 L, MCV 101.4 H, MCH 32.8 H, MCHC 32.3, RDW 14.8, Plt Count 375 D, MPV 8.7, Neut % (Auto) 80.4 H, Lymph % (Auto) 15.5, [place] % (Auto) 3.2, Eos % (Auto) 0.6, Baso % (Auto) 0.2, Neut # (Auto) 3.1, Lymph # (Auto) 0.6 L, [place] # (Auto) 0.1, Eos # (Auto) 0.0, Baso # (Auto) 0.0 03/27/22 19:20: Sodium 135 L, Potassium 4.6, Chloride 107, Carbon Dioxide 18 L, Anion Gap 14.6, BUN 65 H, Creatinine 4.80 H, Estimated Creat Clear 13, Estimated GFR 9 L*, Est GFR ( Amer) 11 L*, Glucose 202 H D, Calcium 7.0 L 03/28/22 05:58: Sodium 134 L, Potassium 4.7, Chloride 108 H, Carbon Dioxide 21 L, Anion Gap 9.7, BUN 77 H, Creatinine 4.80 H, Estimated Creat Clear 13, Estimated GFR 9 L*, Est GFR ( Amer) 11 L*, Glucose 103 H D, Calcium 6.7 L, Magnesium 1.9 D, Total Bilirubin 0.2, AST 19 D, ALT 8 L, Alkaline Phosphatase 74, Total Protein 5.1 L, Albumin 2.3 L D, Globulin 2.8, Albumin/Globulin Ratio 0.8 L 03/28/22 09:15: Random Vancomycin 9.4 03/28/22 13:54: Sodium 134 L, Potassium 4.8, Chloride 107, Carbon Dioxide 17 L, Anion Gap 14.8, BUN 65 H, Creatinine 4.60 H, Estimated Creat Clear 13, Estimated GFR 10 L*, Est GFR ( Amer) 12 L*, Glucose 169 H D, Calcium 6.7 L I & O for Labs for Last 24 Hours: Intake & Output 03/25/22 03/26/22 03/27/22 03/28/22 23:59 23:59 23:59 23:59 Intake Total 1454 / 1454 2788 / 2788 Output Total 950 / 1400 1050 / 1050 Balance 504 / 54 1738 / 1738 Weight 65.317 kg 65.317 kg 67 kg Constitutional: Present no acute distress, average body habitus and chronically ill appearing Head: Present atraumatic and normocephalic ENT: Present normal exam Neck: Present normal inspection Respiratory: Present normal respiratory effort; Absent accessory muscle use, rhonchi, wheezes or crackles Cardiac: Present Reg Rate and Rhythm GI: Present soft and normal bowel sounds; Absent distention or tenderness Extremities: Present normal inspection and edema (1+ bilateral lower extremities) Skin: Present intact; Absent erythema Neuro: Present alert, awake and oriented x 3; Absent moves all extremities Comment:: Chronic left-sided deficits noted on exam Assessment and Plan *Assessment and plan (1) COVID-19: Status: Acute Category: Medical Code(s): U07.1 - COVID-19 (2) Acute on chronic renal failure: Status: Acute Category: Medical Code(s): N17.9 - Ac
[2022-03-28 20:00] VITALS: BP 135/74; PULSE 68; PULSE 70; RESP 12; TEMP 36.6; O2SAT 95; O2SAT 96
[2022-03-29] VITALS (8 sets, daily range): BP systolic 118–152; BP diastolic 69–82; PULSE 60–77; RESP 17–20; TEMP 36.3–37.3; O2SAT 93–96; BMI 25.1
[2022-03-29 06:44] LABS: Basophils % 0.2 % (0.1-2.0); Eosinophils % 0.2 % (0.1-12.0); Hematocrit 23.9 % (37.0-47.0); Hemoglobin 7.4 g/dL (12.2-16.2); Lymphocytes # 0.9 K/mm3 (0.7-4.5); Lymphocytes % 27.2 % (10-50); Mean Corpuscular HGB Conc 31.1 g/dL (31.8-35.4); Mean Corpuscular Hemoglobin 32.7 pg (27.0-31.2); Mean Corpuscular Volume 105.1 fl (81-99); Monocytes # 0.2 K/mm3 (0.1-1.0); Monocytes % 5.4 % (1.7-9.3); Neutrophils # 2.3 K/mm3 (1.8-7.8); Neutrophils % 67.1 % (37.0-80.0); Platelet Count 326 K/mm3 (142-424); Red Blood Count 2.27 M/mm3 (4.20-5.40); Red Cell Distribution Width 15.2 % (11.5-17.5); White Blood Count 3.4 K/mm3 (4.8-10.8)
[2022-03-29 07:13] LABS: Alanine Aminotransferase 9 U/L (12-78); Albumin Level 2.2 g/dl (3.5-5.0); Albumin/Globulin Ratio 0.8 (1.1-1.8); Alkaline Phosphatase 71 U/L (38-126); Anion Gap 9.6 mEq/L (5-15); Aspartate Amino Transferase 21 U/L (14-36); Bilirubin,Total 0.2 mg/dl (0.2-1.3); Blood Urea Nitrogen 75 mg/dl (7-17); Calcium 6.5 mg/dl (8.4-10.2); Carbon Dioxide 20 mmol/L (22.0-30.0); Chloride 109 mmol/L (98-107); Creatinine Clearance Estimated 13 mL/min (50-200); Estimated Glomerular Filt Rate 9 ml/min (>60); GFR (African American) 11 ML/MIN (>60); Globulin 2.9 g/dL (1.3-3.2); Glucose 113 mg/dl (74-100); Magnesium 1.7 mg/dl (1.6-2.3); Potassium 4.6 mmoL/L (3.5-5.1); Sodium 134 mmol/L (136-145); Total Protein,Serum 5.1 g/dl (6.3-8.2)
--- NOTE | 2022-03-29 07:22 | PC.NURSE ---
Dr. Jan العلي notified of creatinine level 4.9. Stated he will look at patient during rounds.
--- NOTE | 2022-03-29 07:41 | PC.NURSE ---
Pt. has had no changes through out the night.
--- NOTE | 2022-03-29 17:39 | EXP.ACUTE.PN ---
Subjective *Date: 03/29/22 *Time: 17:39 Interval history: No issues overnight, no concerns or complaints this Medical Exam Vital signs and Labs for Last 24 Hours: Vital Signs Temp Pulse Pulse Resp BP Pulse Ox 03/29/22 16:00 70 03/29/22 15:17 98.2 F 69 17 139/74 93 L 03/29/22 11:19 97.7 F 70 18 149/70 H 94 L 03/29/22 08:00 97.4 F L 64 19 137/81 95 03/29/22 04:00 97.9 F 62 18 140/73 94 L 03/29/22 04:00 60 03/29/22 00:00 70 03/29/22 00:00 99.1 F 77 20 118/69 96 03/28/22 20:00 96 03/28/22 20:00 70 03/28/22 20:00 97.9 F 68 12 135/74 95 Intake and Output 03/29/22 03/29/22 03/29/22 07:59 15:59 23:59 Intake Total 800 / 3520 720 / 3520 2000 / 3520 Output Total 0 / 0 Balance 800 / 3520 720 / 3520 2000 / 3520 Intake: Intake, Oral Amount 0 / 720 720 / 720 Intake, Total IV Amount 800 / 2800 2000 / 2800 Cefepime HCl 2 gm In 0.9 % 100 / 100 Sodium Chloride 100 ml @ 200 mls/hr IV Q24H [facility] Rx#:[id number] Ringers Solution,Lactated 1,000 800 / 2700 1900 / 2700 ml @ 100 mls/hr IV .Q10H [facility] Rx#:[id number] Output: Output, Urine Amount 0 / 0 Other: Number of Unmeasured Voids 1 Weight 66.8 kg Patient Weight 03/29/22 23:59 Weight 66.8 kg Laboratory Results - last 24 hr 03/29/22 06:19: WBC 3.4 L, RBC 2.27 L, Hgb 7.4 L, Hct 23.9 L, MCV 105.1 H, MCH 32.7 H, MCHC 31.1 L, RDW 15.2, Plt Count 326, MPV 9.0, Neut % (Auto) 67.1, Lymph % (Auto) 27.2, [place] % (Auto) 5.4, Eos % (Auto) 0.2, Baso % (Auto) 0.2, Neut # (Auto) 2.3, Lymph # (Auto) 0.9, [place] # (Auto) 0.2, Eos # (Auto) 0.0, Baso # (Auto) 0.0 03/29/22 06:19: Sodium 134 L, Potassium 4.6, Chloride 109 H, Carbon Dioxide 20 L, Anion Gap 9.6, BUN 75 H, Creatinine 4.90 H, Estimated Creat Clear 13, Estimated GFR 9 L*, Est GFR ( Amer) 11 L*, Glucose 113 H D, Calcium 6.5 L, Magnesium 1.7 D, Total Bilirubin 0.2, AST 21, ALT 9 L, Alkaline Phosphatase 71, Total Protein 5.1 L, Albumin 2.2 L, Globulin 2.9, Albumin/Globulin Ratio 0.8 L I & O for Labs for Last 24 Hours: Intake & Output 03/26/22 03/27/22 03/28/22 03/29/22 23:59 23:59 23:59 23:59 Intake Total 1454 / 1454 3028 / 3028 3520 / 3520 Output Total 950 / 1400 1050 / 1050 0 / 0 Balance 504 / 54 1977 3520 / 3520 Weight 65.317 kg 65.317 kg 67 kg 66.8 kg Head: Present atraumatic and normocephalic Neck: Present normal inspection Respiratory: Present CTA bilaterally and diminished air movement; Absent accessory muscle use Cardiac: Present Reg Rate and Rhythm GI: Present soft; Absent tenderness Rectal (female): Present deferred (female): Present deferred Extremities: Present normal inspection; Absent tenderness Skin: Present intact; Absent erythema Assessment and Plan *Assessment and plan (1) COVID-19: Status: Acute Category: Medical Code(s): U07.1 - COVID-19 (2) Acute on chronic renal failure: Status: Acute Category: Medical Code(s): N17.9 - Acute kidney failure, unspecified; N18.9 - Chronic kidney disease, unspecified (3) Acute respiratory failure with hypoxia: Status: Acute Category: Medical Code(s): J96.01 - Acute respiratory failure with hypoxia (4) Multifocal pneumonia: Status: Acute Category: Medical Code(s): J18.9 - Pneumonia, unspecified organism (5) Hypertension: Status: Acute Category: Medical Code(s): I10 - Essential (primary) hypertension Plan 61-year-old female with history of CVA, residual left-sided deficits, hypertension, MDS, opiate dependence, and hypothyroidism who presented from her care home with increased shortness of breath.? Found to be COVID-positive.? Has multifocal pneumonia on chest imaging.? Also noted to have CHRISTOPHER and respiratory acidosis.? Initiated on BiPAP.? Medicine consulted for further management.? Problems addressed as follows: Acute hyperc
[2022-03-30] VITALS: BP 154/77; PULSE 71; RESP 20; TEMP 36.6; O2SAT 95
[2022-03-30 04:00] VITALS: BP 149/72; PULSE 64; RESP 18; TEMP 36.6; O2SAT 96; BMI 25.2
[2022-03-30 06:44] LABS: Basophils % 0.4 % (0.1-2.0); Eosinophils % 0.2 % (0.1-12.0); Hematocrit 24.6 % (37.0-47.0); Hemoglobin 7.8 g/dL (12.2-16.2); Lymphocytes % 26.5 % (10-50); Mean Corpuscular HGB Conc 31.7 g/dL (31.8-35.4); Mean Corpuscular Hemoglobin 32.9 pg (27.0-31.2); Mean Corpuscular Volume 103.9 fl (81-99); Monocytes # 0.3 K/mm3 (0.1-1.0); Monocytes % 6.3 % (1.7-9.3); Neutrophils # 2.6 K/mm3 (1.8-7.8); Neutrophils % 66.7 % (37.0-80.0); Platelet Count 329 K/mm3 (142-424); Red Blood Count 2.36 M/mm3 (4.20-5.40); Red Cell Distribution Width 14.8 % (11.5-17.5); White Blood Count 3.9 K/mm3 (4.8-10.8)
[2022-03-30 06:59] LABS: Chloride 112 mmol/L (98-107); Potassium 4.1 mmoL/L (3.5-5.1); Sodium 137 mmol/L (136-145)
[2022-03-30 07:01] LABS: Alanine Aminotransferase 9 U/L (12-78); Aspartate Amino Transferase 19 U/L (14-36); Blood Urea Nitrogen 63 mg/dl (7-17); Creatinine Clearance Estimated 13 mL/min (50-200); Estimated Glomerular Filt Rate 9 ml/min (>60); GFR (African American) 11 ML/MIN (>60)
[2022-03-30 07:02] LABS: Albumin Level 2.2 g/dl (3.5-5.0); Albumin/Globulin Ratio 0.8 (1.1-1.8); Alkaline Phosphatase 70 U/L (38-126); Anion Gap 10.1 mEq/L (5-15); Calcium 6.6 mg/dl (8.4-10.2); Carbon Dioxide 19 mmol/L (22.0-30.0); Globulin 2.9 g/dL (1.3-3.2); Glucose 98 mg/dl (74-100); Magnesium 1.5 mg/dl (1.6-2.3); Phosphorous 4.4 mg/dl (2.5-4.5); Total Protein,Serum 5.1 g/dl (6.3-8.2)
[2022-03-30 07:23] LABS: Bilirubin,Total 0.1 mg/dl (0.2-1.3)
--- NOTE | 2022-03-30 07:23 | PC.NURSE ---
No acute changes. Pt c/o MEEK x1, Tylenol administered. Tlerating 2 L nc well with sats 90%. Call light within reach.
[2022-03-30 08:00] VITALS: BP 152/79; PULSE 76; RESP 18; TEMP 36.9; O2SAT 93
--- NOTE | 2022-03-30 14:13 | EXP.DC.SUM ---
General Admission date:: 03/26/22 HPI HPI HPI: Ms. Dupree is a 61-year-old female who resides at a long-term nursing facility. Past history of right-sided CVA with left-sided deficits, chronic kidney disease, myelo dysplastic syndrome, tobacco use disorder, chronic pain, and protein in who presented to the ER from her facility due to increased shortness of breath and hypoxia. Generally on room air at her [facility]. Requiring 3 L via nasal cannula on arrival to the ER. Reports that she has had a cough, subjective fevers, and worsening shortness of breath. Denies any chest pain, nausea, vomiting, confusion. Symptoms worse with exertion. She gets around in a wheelchair due to her left-sided paralysis. Continues to smoke. On work-up chest imaging concerning for multifocal pneumonia. Positive for COVID. Blood gas obtained showing respiratory acidosis on VBG. Transition to BiPAP. Medicine consulted for admission. On interview, patient is initially laying in bed covered by a blanket. Tolerating BiPAP. Has not had any further history from above. No new complaints. Hemodynamically stable. Hospital Course Hospital Course Hospital Course: Admitted with multifocal pneumonia on chest imaging, also found to have an CHRISTOPHER and respiratory acidosis. Medicine started dexamethasone and antibiotics including vancomycin and cefepime, placed on BiPAP. Oxygen requirement decreased no longer requiring BiPAP. CHRISTOPHER was monitored, peaked at 4.9, and had began improving prior to discharge. Holding lisinopril. Continue carvedilol and amlodipine. Recommend close PCP follow-up of BMP. Recommend referral to nephrology. Exam Data for Last 24 hours Vital signs and Labs for Last 24 Hours: Temp Pulse Resp BP Pulse Ox FiO2 98.5 F 76 18 152/79 H 93 L 28 03/30/22 08:00 03/30/22 08:00 03/30/22 08:00 03/30/22 08:00 03/30/22 08:00 03/27/22 18:53 Laboratory Results - last 24 hr 03/30/22 06:26: WBC 3.9 L, RBC 2.36 L, Hgb 7.8 L, Hct 24.6 L, MCV 103.9 H, MCH 32.9 H, MCHC 31.7 L, RDW 14.8, Plt Count 329, MPV 8.0, Neut % (Auto) 66.7, Lymph % (Auto) 26.5, [place] % (Auto) 6.3, Eos % (Auto) 0.2, Baso % (Auto) 0.4, Neut # (Auto) 2.6, Lymph # (Auto) 1.0, [place] # (Auto) 0.3, Eos # (Auto) 0.0, Baso # (Auto) 0.0 03/30/22 06:26: Sodium 137, Potassium 4.1, Chloride 112 H, Carbon Dioxide 19 L, Anion Gap 10.1, BUN 63 H, Creatinine 4.70 H, Estimated Creat Clear 13, Estimated GFR 9 L*, Est GFR ( Amer) 11 L*, Glucose 98, Calcium 6.6 L, Phosphorus 4.4, Magnesium 1.5 L D, Total Bilirubin 0.1 L, AST 19, ALT 9 L, Alkaline Phosphatase 70, Total Protein 5.1 L, Albumin 2.2 L, Globulin 2.9, Albumin/Globulin Ratio 0.8 L I & O for Last 24 hours: Intake & Output 03/27/22 03/28/22 03/29/22 03/30/22 23:59 23:59 23:59 23:59 Intake Total 1454 / 1454 3028 / 3028 3880 / 4000 1460 / 1460 Output Total 950 / 1400 1050 / 1050 400 / 400 0 / 0 Balance 504 / 54 1977 / 1977 3480 / 3600 1460 / 1460 Weight 65.317 kg 67 kg 66.8 kg 67.2 kg Constitutional Constitutional: no acute distress and cooperative *Routine Neck Exam Neck: Present supple and full ROM *Routine Respiratory Exam Respiratory: Present accessory muscle use and CTA bilaterally *Routine Cardiovascular Exam Cardiovascular: Present RRR, Normal S1 and Normal S2 *Routine Abdominal Exam Abdominal: Present soft; Absent tenderness *Routine Extremities Exam Extremities: Absent cyanosis or edema *Routine Skin Exam Skin: Absent intact or erythema *Routine Neurological Exam Neurological: Present alert and oriented X3 Results Data Completed and Pending Labs on day of discharge: Labs from last 24 hours 03/30/22 03/30/22 06:26 06:26 WBC 3.9 L RBC 2.36 L Hgb 7.8 L Hct 24.6 L MCV 103.9 H MCH 32.9 H MCHC 31.7 L RDW 14.8 Plt Count 329 MPV 8.0 Neut % (Auto) 66.7 Lymph % (Auto) 26.5 [place] % (Auto) 6.3 Eos % (Auto) 0.2 Baso % (Auto) 0.4 Neut # (Auto) 2.6 Lymph # (Auto) 1.0
== END 2022-03-30 15:37 | DRG 177 ==
LOC: ER 16:00 → 2ND 03-27 00:52
PROVIDERS: Nurse Practitioner Family; Admitting Provider Internal Medicine Adolescent Medicine; Emergency Provider Emergency Medicine; PCP Emergency Medicine; Visit Provider Student in an Organized Health Care Education/Training Program
DX: U07.1 COVID-19 (principal); J18.9 Pneumonia, unspecified organism; J96.01 Acute respiratory failure with hypoxia; J96.02 Acute respiratory failure with hypercapnia; N17.9 Acute kidney failure, unspecified; I69.354 Hemiplegia and hemiparesis following cerebral infarction affecting left non-dominant side; F17.210 Nicotine dependence, cigarettes, uncomplicated; D46.9 Myelodysplastic syndrome, unspecified; N18.9 Chronic kidney disease, unspecified; E03.9 Hypothyroidism, unspecified; T40.601A Poisoning by unspecified narcotics, accidental (unintentional), initial encounter; F39 Unspecified mood [affective] disorder
CPT/HCPCS: 36415; 51702; 71045; 80048; 80053; 80202; 82803; 83605; 83735; 83880; 84100; 84145; 84484; 85025; 93005; 94760; 97110; 97162; 97166; 97530; 99291; C9803; J0692; J3370; J3475; U0003; U0005

== ENCOUNTER → 2022-04-25 15:54 | Outpatient (CLI) | payer MEDICARE, MEDICAID, BC, SELFPAY ==
[2022-04-25 17:00] LABS: Adenovirus F 40/41, stool Not Detected (NotDetected); Astrovirus Not Detected (NotDetected); Campylobacter Not Detected (NotDetected); Clostridium Difficile A/B, PCR Not Detected (NotDetected); Cryptosporidium Not Detected (NotDetected); Cyclospora Cayetanesis Not Detected (NotDetected); Entamoeba histolytica Not Detected (NotDetected); Enteroaggregative E coli Not Detected (NotDetected); Enteropathogenic E coli Not Detected (NotDetected); Enterotoxigenic E coli Not Detected (NotDetected); Giardia lamblia Not Detected (NotDetected); Norovirus Not Detected (NotDetected); Plesimonas Shigalloides, PCR Not Detected (NotDetected); Rotavirus A Not Detected (NotDetected); Salmonella, PCR Not Detected (NotDetected); Sapovirus Not Detected (NotDetected); Shiga-like toxin E coli Not Detected (NotDetected); Shigella Enterovasive E coli Not Detected (NotDetected); Vibrio Cholerae Not Detected (NotDetected); Vibrio, PCR Not Detected (NotDetected); Yersinia Entercolitica, PCR Not Detected (NotDetected)
== END ==
PROVIDERS: PCP Emergency Medicine; Visit Provider Emergency Medicine
DX: K59.00 Constipation, unspecified (principal)
CPT/HCPCS: 87507

== ENCOUNTER → 2022-05-05 14:22 | Outpatient (CLI) | payer MEDICARE, MEDICAID, SELFPAY ==
--- NOTE | 2022-05-05 14:22 | US_ITS ---
FINAL REPORT TECHNIQUE: Ultrasound images of the kidneys were obtained. CLINICAL HISTORY: N18.9 - Chronic kidney disease, unspecified FINDINGS: US RETROPERITONEAL The right kidney measures 8.0 cm in length. The left kidney measures 7.8 cm in length. There is increased echogenicity of the renal cortex which is probably due to medical renal disease. There are multiple bilateral renal cysts measuring up to 2.1 cm on the right and up to 5.7 cm. There is no hydronephrosis. IMPRESSION: Increased echogenicity of the renal cortex, probably due to medical renal disease. Multiple bilateral renal cysts. Reviewed, Interpreted and Dictated by Stas Perry MD Transcribed by Nabila Alva Authenticated and [facility]
== END ==
PROVIDERS: PCP Emergency Medicine; Visit Provider Nurse Practitioner Family
DX: N18.9 Chronic kidney disease, unspecified (principal)
CPT/HCPCS: 76770

== ENCOUNTER 2022-05-26 08:16 | Outpatient (CLI) | payer MEDICARE, BC, MEDICAID, SELFPAY ==
[2022-05-26] VITALS (20 sets, daily range): BP systolic 143–168; BP diastolic 56–90; PULSE 60–69; RESP 18; TEMP 36.2–36.4; O2SAT 96–97; BMI 25.0
[2022-05-26 10:35] LABS: Hematocrit 25.8 % (37.0-47.0); Hemoglobin 7.5 g/dL (12.2-16.2)
== END 2022-05-26 16:03 | disposition home or self-care (01) ==
LOC: INF 08:17
PROVIDERS: PCP Emergency Medicine; Visit Provider Emergency Medicine
DX: D64.9 Anemia, unspecified (principal)
CPT/HCPCS: 36415; 36430; 85014; 85018; 86850; P9016

== ENCOUNTER → 2022-05-30 10:45 | Outpatient (POV) | payer MEDICARE, SELFPAY | PROVIDERS: Visit Provider Internal Medicine Nephrology | DX: Z00.00 Encounter for general adult medical examination without abnormal findings (principal) ==

== ENCOUNTER 2022-06-07 11:15 | Emergency (ER) | payer MEDICARE, BC, MEDICAID, SELFPAY ==
[2022-06-07] VITALS (13 sets, daily range): BP systolic 84–119; BP diastolic 41–61; PULSE 60–76; RESP 12–18; TEMP 35.3–36.4; O2SAT 94–97; BMI 27.4; BMI 26.6
[2022-06-07 11:26] LABS: POC Glucose,Bedside 53 (70-110)
--- NOTE | 2022-06-07 11:35 | XR_ITS ---
FINAL REPORT CLINICAL HISTORY: AMS, hypoglycemia, COPD COMPARISON: 03/26/2022 FINDINGS: SINGLE-VIEW CHEST The heart size is normal. The mediastinum is normal. There are right lung opacities worrisome for pneumonia. There is no pneumothorax. IMPRESSION: Findings worrisome for right lung pneumonia. Reviewed, Interpreted and Dictated by Renato Dumont III, MD Transcribed by Whitley Ray Authenticated and [facility]
--- NOTE | 2022-06-07 11:38 | HMH.EDGENADL ---
Discharge Plan Disposition Patient Disposition: Xfer Short-Term Hosp Condition: Serious Chief Complaint: Hyper/Hypoglycemia Prescriptions Prescriptions: No Action hydrocodone-acetaminophen 5-325 mg tablet 1 tab PO BID PRN (Reason: Pain) Qty: 60 0RF gabapentin 300 mg capsule 300 mg PO BID Qty: 60 3RF carvedilol 3.125 mg Tablet 3.125 mg PO BID levothyroxine 75 mcg Tablet 75 mcg PO DAILY amlodipine 10 mg Tablet 10 mg PO DAILY pantoprazole [Protonix] 40 mg Tablet,Delayed Release (Dr/Ec) 40 mg PO DAILY duloxetine 30 mg Capsule,Delayed Release(Dr/Ec) 30 mg PO DAILY Eliquis 2.5 mg Tablet 2.5 mg PO BID quetiapine 100 mg tablet 100 mg PO HS sucralfate 1 gram tablet 1 g PO TIDWMEAL clonazepam [Klonopin] 0.5 mg tablet 0.5 mg PO BID ergocalciferol (vitamin D2) 1,250 mcg (50,000 unit) capsule 50,000 unit PO WEEKLY Vitamin 27 mg iron- 800 mcg tablet 1 ea PO 1700 Referrals Follow up/Referrals: Provider,Referral, MD [Primary Care Provider] - See instructions Clinical Impressions Clinical Impression: Sepsis, Acute on chronic kidney failure, Hypoglycemia, Encephalopathy acute, Pneumonia, Urinary tract infection Instructions Patient Instructions: DI for Hyperglycemia -- Adult Discharge ED Provider: Ton Ryan General Adult HPI General Chief complaint: Hyper/Hypoglycemia Stated complaint: lethargic Time Seen by Provider: 06/07/22 11:18 Mode of Arrival: EMS Source of Information: Patient and EMS Limitations: Altered Mental Status History of Present Illness HPI narrative: This is a 61-year-old female with history of hypertension, hyperlipidemia, type 2 diabetes (? -Reported from nursing facility), COPD, CVA with no residual deficits, myelodysplastic disease secondary to chronic kidney failure currently being evaluated for dialysis catheter placement who is presenting with altered mental status. Per EMS (per nursing facility) patient has been progressively altered over the past 2 days. She is usually GCS 15, wheelchair-bound, conversational, but over the past 2 days has had declining mental status. Patient has had no complaints, per EMS. All narcotics have been held at nursing facility secondary to mental status. Patient also reportedly has type 2 diabetes, but per paperwork is not currently on any treatment for diabetes. Patient mildly altered, so rest of history unable to be obtained secondary to mental status. Related Data Home Medications Medication Instructions Recorded Confirmed amlodipine 10 mg tablet 10 mg PO DAILY blood pressure 03/26/22 06/07/22 apixaban 2.5 mg tablet (Eliquis) 2.5 mg PO BID Blood thinner 03/26/22 06/07/22 carvedilol 3.125 mg tablet 3.125 mg PO BID blood pressure 03/26/22 06/07/22 duloxetine 30 mg capsule,delayed 30 mg PO DAILY Depression 03/26/22 06/07/22 release levothyroxine 75 mcg tablet 75 mcg PO DAILY hypothyroidism 03/26/22 06/07/22 pantoprazole 40 mg tablet,delayed 40 mg PO DAILY GERD 03/26/22 06/07/22 release (Protonix) quetiapine 100 mg tablet 100 mg PO HS sleep/mood 03/26/22 06/07/22 sucralfate 1 gram tablet 1 g PO TIDWMEAL Stomach Ulcer 03/27/22 06/07/22 clonazepam 0.5 mg tablet (Klonopin) 0.5 mg PO BID Anxiety 06/07/22 06/07/22 ergocalciferol (vitamin D2) 1,250 50,000 unit PO WEEKLY Supplement 06/07/22 06/07/22 mcg (50,000 unit) capsule vits no.130-ferrous fum 1 ea PO 1700 Supplement 06/07/22 06/07/22 27 mg iron-folic acid 800 mcg tablet ( Vitamin) Previous Rx's Medication Instructions Recorded gabapentin 300 mg capsule 300 mg PO BID Pain #60 caps 04/19/22 hydrocodone 5 mg-acetaminophen 325 1 tab PO BID PRN Pain #60 tabs 04/19/22 mg tablet Allergies Allergy/AdvReac Type Severity Reaction Status Date / Time adhesive tape Allergy Unknown Verified 04/19/22 17:14 cyclobenzaprine Allergy Unknown Verified 04/19/22 17:14 [CYCLOBENZAPRINE] hy
--- NOTE | 2022-06-07 11:39 | CT_ITS ---
FINAL REPORT CLINICAL HISTORY: AMS FINDINGS: Axial images of the head were obtained without contrast. Coronal reformatted images were also obtained.This study was performed with techniques to keep radiation doses as low as reasonably achievable (ALARA). Individualized dose reduction techniques using automated exposure control or adjustment of mA and/or kV according to the patient's size were employed. There is no evidence of intracranial hemorrhage or mass. The ventricular size is within normal limits. There is no evidence of shift of the midline structures. No abnormal extra axial fluid collection is identified. No skull abnormality is seen on the bone window images. There is complete opacification of the left sphenoid sinus. IMPRESSION: No acute intracranial abnormality. Reviewed, Interpreted and Dictated by Renato Dumont III, MD Transcribed by Whitley Ray Authenticated and [facility][1]
--- NOTE | 2022-06-07 11:54 | ECG_ITS ---
APPROVED REPORT Exam: Resting ECG HR:72 bpm ECG Measurements Heart Rate 72 AXES WA 131 P 39 QRSd 82 QRS 82 QT 379 T 77 QTc 403 Conclusion SINUS RHYTHM Late R wave progression - previously noted ABNORMAL ECG UNCONFIRMED REPORT Electronically signed by : Sukhwinder Schilling MD 06/07/2022 20:28:25
--- NOTE | 2022-06-07 12:06 | PC.NURSE ---
lab at [facility] notified of vbg order
--- NOTE | 2022-06-07 12:06 | PC.NURSE ---
fsbs recheck 154, notified CRISTOPHER CHERRY
[2022-06-07 12:12] LABS: POC Glucose,Bedside 154 (70-110)
[2022-06-07 12:14] LABS: VBG Base Excess -21.1 mmol/L (-2.4-2.3); VBG HCO3 10.2 mmol/L (23-30); VBG Oxygen Saturation 99.3 % (50-70); VBG PCO2 42.9 mmol/L (35-51); VBG PO2 170.5 mmol/L (28-40); VBG Total CO2 11.5 mmol/L (23-27)
[2022-06-07 12:15] LABS: Microscopic, Urine URINE MICROSCOPIC (MICROSCOPIC)
[2022-06-07 12:17] LABS: Basophils % 0.2 % (0.1-2.0); Eosinophils # 0.1 K/mm3 (0.0-0.4); Eosinophils % 0.5 % (0.1-12.0); Hematocrit 32.6 % (37.0-47.0); Hemoglobin 9.9 g/dL (12.2-16.2); Lymphocytes # 1.2 K/mm3 (0.7-4.5); Lymphocytes % 11.9 % (10-50); Mean Corpuscular HGB Conc 30.4 g/dL (31.8-35.4); Mean Corpuscular Hemoglobin 32.4 pg (27.0-31.2); Mean Corpuscular Volume 106.6 fl (81-99); Mean Platelet Volume 8.4 fl (7.4-10.4); Monocytes # 0.2 K/mm3 (0.1-1.0); Monocytes % 1.9 % (1.7-9.3); Neutrophils # 8.6 K/mm3 (1.8-7.8); Neutrophils % 85.4 % (37.0-80.0); Platelet Count 273 K/mm3 (142-424); Red Blood Count 3.06 M/mm3 (4.20-5.40); Red Cell Distribution Width 17.3 % (11.5-17.5); White Blood Count 10.1 K/mm3 (4.8-10.8)
[2022-06-07 12:17] LABS: Coronavirus 19, PCR Not Detected (NotDetected); Influenza A, PCR Not Detected (NotDetected); Influenza B, PCR Not Detected (NotDetected)
[2022-06-07 12:21] LABS: MANUAL DIFFERENTIAL MANUAL DIFFERENTIAL (MANUAL DIFF)
[2022-06-07 12:22] LABS: INR 1.31 (0.9-1.1); Prothrombin Time 13.9 seconds (10.1-12.5)
--- NOTE | 2022-06-07 12:24 | PC.NURSE ---
pt to CT via stretcher
--- NOTE | 2022-06-07 12:25 | PC.NURSE ---
notified ER of pt blood gas results
--- NOTE | 2022-06-07 12:28 | PC.NURSE ---
From CT via stretcher.
[2022-06-07 12:30] LABS: Appearance,Urine SL CLOUDY (Clear); Blood, Urine 3+ (Negative); Color,Urine YELLOW (Yellow); Glucose,Urine (UA) Negative (Negative); Ketones,Urine Negative (Negative); Leukocyte Esterase,Urine 2+ (Negative); Nitrate,Urine Negative (Negative); Protein,Urine 2+ (Negative); Urobilinogen,Urine 0.2 EU/dl (0.2)
[2022-06-07 12:33] LABS: Lymphocytes % 7 % (10-50); Macrocytosis 2+; Monocytes % 1 % (2-9); Neutrophils % 92 % (42-76); Platelet Estimate Normal; Total Cells Counted 100
[2022-06-07 12:35] LABS: Chloride 113 mmol/L (98-107)
[2022-06-07 12:36] LABS: Potassium 4.1 mmoL/L (3.5-5.1); Sodium 137 mmol/L (136-145)
[2022-06-07 12:38] LABS: Alanine Aminotransferase 10 U/L (12-78); Alkaline Phosphatase 200 U/L (38-126); Anion Gap 16.1 mEq/L (5-15); Aspartate Amino Transferase 15 U/L (14-36); Bilirubin,Total 0.4 mg/dl (0.2-1.3); Carbon Dioxide 12 mmol/L (22.0-30.0); Creatinine Clearance Estimated 8 mL/min (50-200); Estimated Glomerular Filt Rate 5 ml/min (>60); GFR (African American) 6 ML/MIN (>60); Lipase 348 U/L (23-300)
[2022-06-07 12:39] LABS: Albumin Level 2.3 g/dl (3.5-5.0); Albumin/Globulin Ratio 0.6 (1.1-1.8); Globulin 3.7 g/dL (1.3-3.2); Glucose 213 mg/dl (74-100); Lactic Acid 0.9 mmol/L (0.7-2.1)
[2022-06-07 12:41] LABS: Bilirubin,Urine 1+ (Negative)
[2022-06-07 12:42] LABS: Blood Urea Nitrogen 83 mg/dl (7-17)
[2022-06-07 12:48] LABS: Bacteria,Urine 3+ /lpf; Squamous Epithelial Cell,Urine Occasional #/hpf (0-5); WBC,Urine 50-100 #/hpf (0-3)
--- NOTE | 2022-06-07 12:49 | EXP.PHA.CONS ---
Pharmacy Consult Date: 06/07/22 Time: 12:49 Referring provider: DR CHAPA Reason for Consult:: VANCOMYCIN DOSING CONSULT Allergies Allergy/AdvReac Type Severity Reaction Status Date / Time adhesive tape Allergy Unknown Verified 04/19/22 17:14 cyclobenzaprine Allergy Unknown Verified 04/19/22 17:14 [CYCLOBENZAPRINE] hyoscyamine [HYOSCYAMINE] Allergy Unknown Verified 04/19/22 17:14 latex [LATEX] Allergy Unknown Verified 04/19/22 17:14 methocarbamol [METHOCARBAMOL] Allergy Unknown Verified 04/19/22 17:14 Home Medications Medication Instructions Recorded Confirmed Type amlodipine 10 mg tablet 10 mg PO DAILY blood pressure 03/26/22 04/19/22 History apixaban 2.5 mg tablet (Eliquis) 2.5 mg PO BID Blood thinner 03/26/22 04/19/22 History carvedilol 3.125 mg tablet 3.125 mg PO BID blood pressure 03/26/22 04/19/22 History duloxetine 30 mg capsule,delayed 30 mg PO DAILY Depression 03/26/22 04/19/22 History release levothyroxine 75 mcg tablet 75 mcg PO DAILY hypothyroidism 03/26/22 04/19/22 History pantoprazole 40 mg tablet,delayed 40 mg PO DAILY acid reflux 03/26/22 04/19/22 History release (Protonix) quetiapine 100 mg tablet 100 mg PO HS sleep/mood 03/26/22 04/19/22 History sucralfate 1 gram tablet 1 g PO TIDWMEAL stomach 03/27/22 04/19/22 History dexamethasone 4 mg tablet 6 mg PO DAILY 2 days #3 tabs 03/30/22 04/19/22 Rx ergocalciferol (vitamin D2) 1,250 50,000 unit PO WEEKLY #52 caps 03/30/22 04/19/22 Rx mcg (50,000 unit) capsule vits no.130-ferrous fum 1 ea PO 1700 60 days #60 tabs 03/30/22 04/19/22 Rx 27 mg iron-folic acid 800 mcg tablet ( Vitamin) gabapentin 300 mg capsule 300 mg PO BID Pain #60 caps 04/19/22 04/19/22 Rx hydrocodone 5 mg-acetaminophen 325 1 tab PO BID PRN Pain #60 tabs 04/19/22 04/19/22 Rx mg tablet clonazepam 0.5 mg tablet (Klonopin) 0.5 mg PO BID anxierty #60 tabs 05/19/22 Rx New Prescriptions to Start Prescriptions: Height: 1.65 m Weight: 72.575 kg Laboratory Results:: Laboratory Results - last 24 hr 06/07/22 11:19: POC Glucose 53 L 06/07/22 11:36: VBG pH 7.00 L, VBG pCO2 42.9, VBG pO2 170.5 H, VBG HCO3 10.2 L, VBG Total CO2 11.5 L, VBG O2 Saturation 99.3 H, VBG Base Excess -21.1 L 06/07/22 11:50: WBC 10.1, RBC 3.06 L, Hgb 9.9 L, Hct 32.6 L, MCV 106.6 H, MCH 32.4 H, MCHC 30.4 L, RDW 17.3, Plt Count 273, MPV 8.4, Neut % (Auto) 85.4 H, Lymph % (Auto) 11.9, [place] % (Auto) 1.9, Eos % (Auto) 0.5, Baso % (Auto) 0.2, Neut # (Auto) 8.6 H, Lymph # (Auto) 1.2, [place] # (Auto) 0.2, Eos # (Auto) 0.1, Baso # (Auto) 0.0, Total Counted 100, Neutrophils % (Manual) 92 H, Lymphocytes % (Manual) 7 L, Monocytes % (Manual) 1 L, Platelet Estimate Normal, Macrocytosis 2+ 06/07/22 11:50: Sodium 137, Potassium 4.1, Chloride 113 H, Carbon Dioxide 12 L, Anion Gap 16.1 H, BUN 83 H, Creatinine 8.50 H, Estimated Creat Clear 8, Estimated GFR 5 L*, Est GFR ( Amer) 6 L*, Glucose 213 H, Calcium 8.0 L, Total Bilirubin 0.4, AST 15, ALT 10 L, Alkaline Phosphatase 200 H, Total Protein 6.0 L, Albumin 2.3 L, Globulin 3.7 H, Albumin/Globulin Ratio 0.6 L, Lipase 348 H 06/07/22 11:50: Lactate 0.9 06/07/22 11:50: PT 13.9 H, INR 1.31 H 06/07/22 11:55: POC Glucose 154 H 06/07/22 12:03: Urine Color Yellow, Urine Appearance Sl cloudy, Urine pH 6.0, Ur Specific [place] 1.020, Urine Protein 2+, Urine Glucose (UA) Negative, Urine Ketones Negative, Urine Blood 3+, Urine Nitrate Negative, Urine Bilirubin 1+ A, Urine Urobilinogen 0.2, Ur Leukocyte Esterase 2+ A, Urine RBC 3-5, Urine WBC 50-100, Ur Squamous Epith Cells Occasional, Urine Bacteria 3+ Medical History: Medical History (Updated 03/26/22 @ 18:33 by Guillermo Bertrand MD) Chronic back pain greater than 3 months duration CKD (chronic kidney disease) CVA (cerebral vascular accident) Myelodysplastic syndrome Assessment and Plan Assessment and plan all Dx Assessment and Plan for all problems:: RECOMMENDED TO DOSE VANCOMYCIN AT 15-20 MG/KG = 1250 MG IV VANC
[2022-06-07 12:56] LABS: T4 (Thyroxine) 1.7 ug/dl (5.53-11.0)
[2022-06-07 12:58] LABS: Troponin I < 0.01 ng/ml (0.00-0.034)
--- NOTE | 2022-06-07 13:00 | PC.NURSE ---
Spoke with Dorinda in radiology to power-share images to [facility] and burn a disc
[2022-06-07 13:10] LABS: Thyroid Stimulating Hormone 9.66 uIU/mL (0.465-4.68)
--- NOTE | 2022-06-07 13:16 | PC.NURSE ---
CRISTOPHER CHERRY speaking with [facility] MDs at this time
--- NOTE | 2022-06-07 13:23 | PC.NURSE ---
CRISTOPHER CHERRY speaking with Dr. Bertrand, Hospitalist at this time
--- NOTE | 2022-06-07 13:24 | PC.NURSE ---
patient is on [facility] wait-list for admission; contacting [facility] at this time.
--- NOTE | 2022-06-07 13:35 | PC.NURSE ---
CRISTOPHER CHERRY speaking with [facility] team at this time
--- NOTE | 2022-06-07 13:41 | PC.NURSE ---
pt accepted to [facility] per Dr. Rodgers, waiting procurement consultant back with bed assignment, stated they do have an ICU bed open at this time.
[2022-06-07 14:14] LABS: POC Glucose,Bedside 145 (70-110)
--- NOTE | 2022-06-07 14:33 | PC.NURSE ---
received call from [facility] for room assignment.
--- NOTE | 2022-06-07 14:58 | PC.NURSE ---
care management work on pre-authorization for ems
--- NOTE | 2022-06-07 15:03 | PC.NURSE ---
notified ER pt 2nd L of IVF is complete, pt bp 82/43(59)
[2022-06-07 15:36] LABS: POC Glucose,Bedside 117 (70-110)
== END 2022-06-07 15:48 | disposition short-term general hospital (02) ==
PROVIDERS: Emergency Provider Emergency Medicine
DX: A41.9 Sepsis, unspecified organism (principal); N17.9 Acute kidney failure, unspecified; N18.9 Chronic kidney disease, unspecified; E11.649 Type 2 diabetes mellitus with hypoglycemia without coma; G93.40 Encephalopathy, unspecified; J18.9 Pneumonia, unspecified organism; N39.0 Urinary tract infection, site not specified; E78.5 Hyperlipidemia, unspecified; I12.9 Hypertensive chronic kidney disease with stage 1 through stage 4 chronic kidney disease, or unspecified chronic kidney disease; E11.22 Type 2 diabetes mellitus with diabetic chronic kidney disease; J44.9 Chronic obstructive pulmonary disease, unspecified; Z86.73 Personal history of transient ischemic attack (TIA), and cerebral infarction without residual deficits; D46.9 Myelodysplastic syndrome, unspecified; F17.210 Nicotine dependence, cigarettes, uncomplicated; M54.9 Dorsalgia, unspecified; G89.29 Other chronic pain; Z82.49 Family history of ischemic heart disease and other diseases of the circulatory system; Z20.822 Contact with and (suspected) exposure to COVID-19
CPT/HCPCS: 36415; 51702; 70450; 71045; 80053; 81001; 82803; 82962; 83605; 83690; 84436; 84443; 84484; 85007; 85025; 85610; 87040; 87086; 87088; 87186; 93005; 96361; 96365; 96366; 96367; 96375; 99291; C9803; G0390; J0696; J3370; U0003; U0005

== ENCOUNTER → 2022-06-21 17:49 | Outpatient (CLI) | payer MEDICARE, BC, MEDICAID, SELFPAY ==
[2022-06-21 18:15] LABS: Basophils # 0.1 K/mm3 (0-0.2); Basophils % 0.7 % (0.1-2.0); Eosinophils # 0.2 K/mm3 (0.0-0.4); Eosinophils % 2.2 % (0.1-12.0); Hematocrit 23.4 % (37.0-47.0); Hemoglobin 7.1 g/dL (12.2-16.2); Lymphocytes # 1.3 K/mm3 (0.7-4.5); Lymphocytes % 17.8 % (10-50); Mean Corpuscular HGB Conc 30.5 g/dL (31.8-35.4); Mean Corpuscular Hemoglobin 32.2 pg (27.0-31.2); Mean Corpuscular Volume 105.8 fl (81-99); Mean Platelet Volume 9.3 fl (7.4-10.4); Monocytes # 0.4 K/mm3 (0.1-1.0); Neutrophils # 5.5 K/mm3 (1.8-7.8); Neutrophils % 74.4 % (37.0-80.0); Platelet Count 286 K/mm3 (142-424); Red Blood Count 2.21 M/mm3 (4.20-5.40); Red Cell Distribution Width 18.3 % (11.5-17.5); White Blood Count 7.4 K/mm3 (4.8-10.8)
== END ==
PROVIDERS: PCP Emergency Medicine; Visit Provider Emergency Medicine
DX: R71.8 Other abnormality of red blood cells (principal)
CPT/HCPCS: 85025

== ENCOUNTER → 2022-06-29 21:31 | Outpatient (CLI) | payer MEDICARE, MEDICAID, SELFPAY ==
[2022-06-29 21:58] LABS: Basophils % 0.5 % (0.1-2.0); Eosinophils # 0.1 K/mm3 (0.0-0.4); Eosinophils % 1.1 % (0.1-12.0); Lymphocytes # 1.2 K/mm3 (0.7-4.5); Lymphocytes % 26.2 % (10-50); Mean Corpuscular HGB Conc 29.3 g/dL (31.8-35.4); Mean Corpuscular Hemoglobin 32.2 pg (27.0-31.2); Mean Corpuscular Volume 109.7 fl (81-99); Mean Platelet Volume 8.7 fl (7.4-10.4); Monocytes # 0.2 K/mm3 (0.1-1.0); Monocytes % 5.2 % (1.7-9.3); Platelet Count 281 K/mm3 (142-424); Red Blood Count 1.86 M/mm3 (4.20-5.40); Red Cell Distribution Width 19.5 % (11.5-17.5); White Blood Count 4.5 K/mm3 (4.8-10.8)
[2022-06-29 22:00] LABS: Hematocrit 20.4 % (37.0-47.0)
== END ==
PROVIDERS: PCP Emergency Medicine; Visit Provider Emergency Medicine
DX: D64.9 Anemia, unspecified (principal)
CPT/HCPCS: 85025

== ENCOUNTER 2022-06-30 10:30 | Emergency (ER) | payer MEDICARE, MEDICAID, SELFPAY ==
[2022-06-30] VITALS (12 sets, daily range): BP systolic 128–164; BP diastolic 62–87; PULSE 51–86; RESP 13–18; TEMP 36.2–37; O2SAT 95–99; BMI 22.8
--- NOTE | 2022-06-30 10:34 | ECG_ITS ---
APPROVED REPORT Exam: Resting ECG HR:57 bpm ECG Measurements Heart Rate 57 AXES UT 143 P 35 QRSd 87 QRS 52 QT 456 T 53 QTc 449 Conclusion SINUS BRADYCARDIA BORDERLINE ECG UNCONFIRMED REPORT Electronically signed by : Sukhwinder Schilling MD 07/01/2022 17:02:45
--- NOTE | 2022-06-30 10:44 | HMH.EDGENADL ---
Discharge Plan Disposition Patient Disposition: Home, Self-Care Prescriptions Prescriptions: No Action hydrocodone-acetaminophen 5-325 mg tablet 1 tab PO BID PRN (Reason: Pain) Qty: 60 0RF carvedilol 3.125 mg Tablet 3.125 mg PO BID levothyroxine 75 mcg Tablet 75 mcg PO DAILY amlodipine 10 mg Tablet 10 mg PO DAILY pantoprazole [Protonix] 40 mg Tablet,Delayed Release (Dr/Ec) 40 mg PO DAILY duloxetine 30 mg Capsule,Delayed Release(Dr/Ec) 20 mg PO DAILY Eliquis 2.5 mg Tablet 2.5 mg PO BID quetiapine 100 mg tablet 100 mg PO HS sucralfate 1 gram tablet 1 g PO TIDWMEAL clonazepam [Klonopin] 0.5 mg tablet 0.5 mg PO BID ergocalciferol (vitamin D2) 1,250 mcg (50,000 unit) capsule 50,000 unit PO WEEKLY Vitamin 27 mg iron- 800 mcg tablet 1 ea PO 1700 melatonin 3 mg Tablet 3 mg PO HS PRN (Reason: supplement) acetaminophen 500 mg Tablet 500 mg PO TID folic acid 1 mg Tablet 1 mg PO DAILY vitamin B complex [Becotin] Capsule 1 cap PO DAILY gabapentin 300 mg capsule 300 mg PO DAILY Referrals Follow up/Referrals: Anton Rivera MD [Primary Care Provider] - See instructions Activity Restrictions/Add. Instructions Additional Instructions/Restrictions: Follow-up with your primary care doctor in 1 to 2 days to repeat your hemoglobin. Return to the emergency department with any ongoing bleeding or other concerns. Clinical Impressions Clinical Impression: Anemia in chronic kidney disease, Encounter for blood transfusion Discharge ED Provider: Sally Jones General Adult HPI General Chief complaint: Recheck/Abnormal Lab/Rx Stated complaint: weakness Time Seen by Provider: 06/30/22 10:44 History of Present Illness HPI narrative: Patient is a 61-year-old female with history of ESRD on dialysis Monday who has not missed any of her dialysis who presents today with generalized weakness and routine labs showing a hemoglobin of 6 from an outside laboratory report. She states that she has had to have intermittent blood transfusions she has not had any lower GI or upper GI bleeding from history and that its been attributed to her chronic kidney disease. She denies any other focal symptoms at this point other than generalized malaise which she states is little bit out of proportion to what she normally feels. Related Data Home Medications Medication Instructions Recorded Confirmed amlodipine 10 mg tablet 10 mg PO DAILY blood pressure 03/26/22 06/07/22 apixaban 2.5 mg tablet (Eliquis) 2.5 mg PO BID Blood thinner 03/26/22 06/07/22 carvedilol 3.125 mg tablet 3.125 mg PO BID blood pressure 03/26/22 06/07/22 duloxetine 30 mg capsule,delayed 20 mg PO DAILY Depression 03/26/22 06/07/22 release levothyroxine 75 mcg tablet 75 mcg PO DAILY hypothyroidism 03/26/22 06/07/22 pantoprazole 40 mg tablet,delayed 40 mg PO DAILY GERD 03/26/22 06/07/22 release (Protonix) quetiapine 100 mg tablet 100 mg PO HS sleep/mood 03/26/22 06/07/22 sucralfate 1 gram tablet 1 g PO TIDWMEAL Stomach Ulcer 03/27/22 06/07/22 clonazepam 0.5 mg tablet (Klonopin) 0.5 mg PO BID Anxiety 06/07/22 06/07/22 ergocalciferol (vitamin D2) 1,250 50,000 unit PO WEEKLY Supplement 06/07/22 06/07/22 mcg (50,000 unit) capsule vits no.130-ferrous fum 1 ea PO 1700 Supplement 06/07/22 06/07/22 27 mg iron-folic acid 800 mcg tablet ( Vitamin) acetaminophen 500 mg tablet 500 mg PO TID . 06/30/22 06/30/22 folic acid 1 mg tablet 1 mg PO DAILY Supplement 06/30/22 06/30/22 gabapentin 300 mg capsule 300 mg PO DAILY Pain 06/30/22 melatonin 3 mg tablet 3 mg PO HS PRN supplement 06/30/22 06/30/22 vitamin B complex 1 cap PO DAILY Supplement 06/30/22 06/30/22 Previous Rx's Medication Instructions Recorded hydrocodone 5 mg-acetaminophen 325 1 tab PO BID PRN Pain #60 tabs 06/17/22 mg tablet Allergies Allergy/AdvReac Type S
[2022-06-30 11:15] LABS: Coronavirus 19, PCR Not Detected (NotDetected); Influenza A, PCR Not Detected (NotDetected); Influenza B, PCR Not Detected (NotDetected)
[2022-06-30 11:22] LABS: Basophils % 0.4 % (0.1-2.0); Eosinophils # 0.1 K/mm3 (0.0-0.4); Eosinophils % 1.4 % (0.1-12.0); Hematocrit 23.3 % (37.0-47.0); Lymphocytes # 1.2 K/mm3 (0.7-4.5); Lymphocytes % 23.6 % (10-50); Mean Corpuscular HGB Conc 28.7 g/dL (31.8-35.4); Mean Corpuscular Hemoglobin 30.8 pg (27.0-31.2); Mean Corpuscular Volume 107.1 fl (81-99); Mean Platelet Volume 7.6 fl (7.4-10.4); Monocytes # 0.2 K/mm3 (0.1-1.0); Monocytes % 4.2 % (1.7-9.3); Neutrophils # 3.6 K/mm3 (1.8-7.8); Neutrophils % 70.3 % (37.0-80.0); Platelet Count 315 K/mm3 (142-424); Red Blood Count 2.18 M/mm3 (4.20-5.40); White Blood Count 5.1 K/mm3 (4.8-10.8)
[2022-06-30 11:29] LABS: Hemoglobin 6.7 g/dL (12.2-16.2)
--- NOTE | 2022-06-30 11:29 | PC.NURSE ---
Dr. Jones notified of pt's hemoglobin 6.7
[2022-06-30 11:30] LABS: Chloride 102 mmol/L (98-107); Sodium 137 mmol/L (136-145)
[2022-06-30 11:34] LABS: Blood Urea Nitrogen 18 mg/dl (7-17); Calcium 7.5 mg/dl (8.4-10.2); Carbon Dioxide 31 mmol/L (22.0-30.0); Creatinine Clearance Estimated 26 mL/min (50-200); Estimated Glomerular Filt Rate 24 ml/min (>60); GFR (African American) 29 ML/MIN (>60); Glucose 91 mg/dl (74-100)
--- NOTE | 2022-06-30 12:38 | PC.NURSE ---
blood verified at the bedside with Danielle RN and myself. Danielle at the bedside with pt
--- NOTE | 2022-06-30 13:45 | PC.NURSE ---
Daisy Patterson at bedside attempting to obtain U/S guided IV in left upper arm, no success d/t IV infiltrating. to bedside to obtain U/S guided IV
== END 2022-06-30 15:12 | disposition home or self-care (01) ==
PROVIDERS: Emergency Provider Student in an Organized Health Care Education/Training Program; PCP Emergency Medicine
DX: N18.6 End stage renal disease; D63.1 Anemia in chronic kidney disease
CPT/HCPCS: 36430; 80048; 85025; 86850; 93005; 99285; C9803; P9016; U0003; U0005

== ENCOUNTER → 2022-07-06 11:11 | Outpatient (CLI) | payer MEDICARE, MEDICAID, SELFPAY ==
--- NOTE | 2022-07-06 11:15 | FL_ITS ---
FINAL REPORT CLINICAL HISTORY: dyspepsia, fluoro time 2:02 FINDINGS: MODIFIED BARIUM SWALLOW HISTORY: Dysphagia. FINDINGS: Fluoroscopy was provided for the speech pathologist to evaluate the swallowing mechanism. The patient was given several different consistencies of barium while the swallow was visualized fluoroscopically. The report of the speech pathologist should be consulted prior to making dietary decisions. IMPRESSION: Modified barium swallow under fluoroscopic guidance. Please see speech pathologist's report for further details and dietary recommendations. Fluoroscopy time was 2 minutes, 2 seconds A total of 14 images were saved Reviewed, Interpreted and Dictated by Renato Dumont III, MD Transcribed by Miranda Felder PA-C Authenticated and [facility]
--- NOTE | 2022-07-06 14:48 | HMH.SLMBS2 ---
Speech & Language Evaluation Speech/Language Mod Barium Swallow Start: 07/06/22 13:42 Freq: once Status: Complete Protocol: Document 07/06/22 13:42 COOKIE (Rec: 07/06/22 14:48 COOKIE [id number]) General Information General Current Food Consistency Mechanical Soft,[place] Liquids Dentition Edentulous Oxygen Status Room Air Facial Symmetry Patient Baseline Ability to Follow Directions Good Communication Ability No Impairment MBS Recommendations Diet Dietary Recommendations Regular,Thin Liquids Treatment/Strategies Strategy/Precaution Recommend Sitting Upright (90 deg),No Straw,Small Bites and Sips, Alternate Liquids/Solids Mod Barium Swallow Impressions Summary and Impressions Oral Phase Impression No Impairment (WFL) Oral Phase Summary Oral phase WFL. Despite lack of dentition, adequate mastication was noted on the study. No significant oral residue noted with any consistencies trialed. Timely AP transit noted. Pharyngeal Phase Impression Mild Impairment Pharyngeal Phase Summary Mild pharyngeal dysphagia. Aspiration noted x1 with thin liquids via straw. No other aspiration present with any other consistencies. Intermittent penetration noted with all consistencies trialed, which cleared upon completion of the pharyngeal swallow with no residue left in the laryngeal vestibule. No significant pharyngeal residue was noted with any consistency trialed. Speech/Language MBS Assessment/Goals/Plan Assessment Date of Evaluation: 07/06/22 Evaluation Type Initial Certification Assessment/Problems Dysphagia per MD order Does Patient Qualify for Service Yes Qualify/Failure Comment RAMP MANAGER at care home will follow up with care. Recommendations PHYSICIAN CERTIFICATION: The specified therapy services are required, authorized, and reviewed every 30 days. Diet Recommendations Normal Liquid Type Recommendations Normal/Thin SL Swallow Guidelines Standard Aspiration Prec. Dysphagia Swallow Precautions/Strategies Sitting Upright (90 deg),No Straw,Small Bites and Sips, Alternate Liquids/Solids
== END ==
PROVIDERS: PCP Emergency Medicine; Visit Provider Emergency Medicine
DX: K31.9 Disease of stomach and duodenum, unspecified (principal); R10.13 Epigastric pain
CPT/HCPCS: 70371; 92611

== ENCOUNTER → 2022-07-07 19:01 | Outpatient (CLI) | payer MEDICARE, MEDICAID, SELFPAY ==
[2022-07-07 19:11] LABS: MANUAL DIFFERENTIAL MANUAL DIFFERENTIAL (MANUAL DIFF)
[2022-07-07 19:28] LABS: Chloride 103 mmol/L (98-107); Potassium 3.8 mmoL/L (3.5-5.1); Sodium 139 mmol/L (136-145)
[2022-07-07 19:31] LABS: Alanine Aminotransferase 17 U/L (12-78); Albumin Level 2.5 g/dl (3.5-5.0); Albumin/Globulin Ratio 0.7 (1.1-1.8); Alkaline Phosphatase 138 U/L (38-126); Aspartate Amino Transferase 23 U/L (14-36); Bilirubin,Total 0.2 mg/dl (0.2-1.3); Blood Urea Nitrogen 25 mg/dl (7-17); Carbon Dioxide 32 mmol/L (22.0-30.0); Estimated Glomerular Filt Rate 33 ml/min (>60); GFR (African American) 40 ML/MIN (>60); Globulin 3.7 g/dL (1.3-3.2); Glucose 122 mg/dl (74-100); Total Protein,Serum 6.2 g/dl (6.3-8.2)
[2022-07-07 19:32] LABS: Anion Gap 7.8 mEq/L (5-15)
[2022-07-07 20:45] LABS: Vitamin B12 923 pg/mL (239-931)
[2022-07-07 20:52] LABS: Folate > 20.00 ng/mL
[2022-07-07 23:51] LABS: Basophils % 0.2 % (0.1-2.0); Eosinophils # 0.1 K/mm3 (0.0-0.4); Eosinophils % 0.9 % (0.1-12.0); Hematocrit 26.9 % (37.0-47.0); Hemoglobin 8.3 g/dL (12.2-16.2); Lymphocytes # 1.1 K/mm3 (0.7-4.5); Lymphocytes % 19.1 % (10-50); Mean Corpuscular HGB Conc 30.9 g/dL (31.8-35.4); Mean Corpuscular Volume 106.8 fl (81-99); Mean Platelet Volume 8.4 fl (7.4-10.4); Monocytes # 0.2 K/mm3 (0.1-1.0); Monocytes % 3.8 % (1.7-9.3); Neutrophils # 4.1 K/mm3 (1.8-7.8); Neutrophils % 75.8 % (37.0-80.0); Platelet Count 296 K/mm3 (142-424); Red Blood Count 2.52 M/mm3 (4.20-5.40); Red Cell Distribution Width 18.8 % (11.5-17.5); White Blood Count 5.5 K/mm3 (4.8-10.8)
[2022-07-08 02:06] LABS: Lymphocytes % 16 % (10-50); Macrocytosis 2+; Monocytes % 5 % (2-9); Neutrophils % 79 % (42-76); Platelet Estimate Normal; Total Cells Counted 100
[2022-07-09 19:08] LABS: Peripheral Smear Review Scanned Result
== END ==
PROVIDERS: PCP Emergency Medicine; Visit Provider Emergency Medicine
DX: D46.9 Myelodysplastic syndrome, unspecified (principal); I10 Essential (primary) hypertension
CPT/HCPCS: 80053; 82607; 82746; 85007; 85014; 85018; 85048; 85049

== ENCOUNTER 2022-07-28 08:20 | Outpatient (CLI) | payer MEDICARE, MEDICAID, SELFPAY ==
[2022-07-28] VITALS (11 sets, daily range): BP systolic 149–180; BP diastolic 53–88; PULSE 56–70; RESP 18; TEMP 36.2–36.7; O2SAT 97–98; BMI 21.9
[2022-07-28 08:54] LABS: Hematocrit 21.3 % (37.0-47.0)
[2022-07-28 08:56] LABS: Hemoglobin 6.6 g/dL (12.2-16.2)
--- NOTE | 2022-07-28 08:56 | PC.NURSE ---
0856-Ponce Arevalo called rn at 0856 to report hgb 6.6. Rn repeated and verified name, , and lab value.Result called to aneudy Gaines with ;no new orders today just follow current order for blood transfusion.
== END 2022-07-28 12:45 | disposition home or self-care (01) ==
PROVIDERS: PCP Emergency Medicine; Visit Provider Internal Medicine
DX: D64.9 Anemia, unspecified (principal)
CPT/HCPCS: 36415; 36430; 85014; 85018; 86850; P9016

== ENCOUNTER → 2022-08-23 12:11 | Outpatient (CLI) | payer MEDICARE, SELFPAY ==
[2022-08-23 12:31] LABS: Basophils % 0.5 % (0.1-2.0); Eosinophils # 0.1 K/mm3 (0.0-0.4); Eosinophils % 2.4 % (0.1-12.0); Lymphocytes # 1.5 K/mm3 (0.7-4.5); Mean Corpuscular HGB Conc 30.9 g/dL (31.8-35.4); Mean Corpuscular Hemoglobin 32.1 pg (27.0-31.2); Mean Corpuscular Volume 103.7 fl (81-99); Monocytes # 0.3 K/mm3 (0.1-1.0); Monocytes % 5.1 % (1.7-9.3); Neutrophils # 3.7 K/mm3 (1.8-7.8); Neutrophils % 66.2 % (37.0-80.0); Platelet Count 329 K/mm3 (142-424); Red Blood Count 2.49 M/mm3 (4.20-5.40); Red Cell Distribution Width 16.6 % (11.5-17.5); White Blood Count 5.7 K/mm3 (4.8-10.8)
[2022-08-23 12:48] LABS: Hematocrit 25.6 % (37.0-47.0)
== END ==
LOC: LAB.DROPOF 12:12
PROVIDERS: PCP Emergency Medicine; Visit Provider Emergency Medicine
DX: E11.21 Type 2 diabetes mellitus with diabetic nephropathy (principal)
CPT/HCPCS: 85025

== ENCOUNTER → 2022-09-26 08:49 | Outpatient (CLI) | payer MEDICARE, BC, MEDICAID, SELFPAY ==
[2022-09-29 02:09] LABS: Calprotectin, Fecal 122 ug/g (0-120)
== END ==
PROVIDERS: PCP Emergency Medicine; Visit Provider Emergency Medicine
DX: R19.5 Other fecal abnormalities (principal)
CPT/HCPCS: 83993

== ENCOUNTER → 2022-10-06 15:04 | Outpatient (CLI) | payer MEDICARE, BC, MEDICAID, SELFPAY ==
[2022-10-06 15:57] LABS: Basophils % 0.6 % (0.1-2.0); Eosinophils # 0.1 K/mm3 (0.0-0.4); Eosinophils % 2.2 % (0.1-12.0); Hematocrit 26.7 % (37.0-47.0); Hemoglobin 8.3 g/dL (12.2-16.2); Lymphocytes # 1.8 K/mm3 (0.7-4.5); Lymphocytes % 41.8 % (10-50); Mean Corpuscular Volume 109.7 fl (81-99); Monocytes # 0.3 K/mm3 (0.1-1.0); Monocytes % 6.2 % (1.7-9.3); Neutrophils # 2.1 K/mm3 (1.8-7.8); Neutrophils % 49.1 % (37.0-80.0); Platelet Count 315 K/mm3 (142-424); Red Blood Count 2.43 M/mm3 (4.20-5.40); Red Cell Distribution Width 16.1 % (11.5-17.5); White Blood Count 4.2 K/mm3 (4.8-10.8)
[2022-10-06 17:51] LABS: Folate > 20.00 ng/mL; Vitamin B12 > 1000 pg/mL (239-931)
[2022-10-06 18:48] LABS: Ferritin 298 ng/ml (11.1-264)
[2022-10-07 12:47] LABS: Iron 69 ug/dL (37-170)
[2022-10-07 12:57] LABS: Total Iron Binding Capacity 207 ug/dL (265-497)
[2022-10-08 10:19] LABS: Haptoglobin 167 mg/dL (37-355)
[2022-10-10 12:10] LABS: Immunoglobulin A, Qn 265 mg/dL (87-352); Immunoglobulin G, Qn 1612 mg/dL (586-1602); Immunoglobulin M, Qn 97 mg/dL (26-217)
[2022-10-10 15:11] LABS: Albumin 2.6 g/dL (2.9-4.4); Alpha-1-Globulin 0.3 g/dL (0.0-0.4); Alpha-2-Globulin 0.8 g/dL (0.4-1.0); Gamma Globulin 1.5 g/dL (0.4-1.8)
[2022-11-05 11:07] LABS: Free Kappa Lt Chains 232.2; Free Lambda Lt Chains 389.7
== END ==
PROVIDERS: PCP Emergency Medicine; Visit Provider Internal Medicine Medical Oncology
DX: D50.9 Iron deficiency anemia, unspecified (principal)
CPT/HCPCS: 36415; 82607; 82728; 82746; 82784; 83010; 83540; 83550; 83883; 84155; 84165; 85025; 86334

== ENCOUNTER 2022-10-19 20:10 | Emergency (ER) | payer MEDICARE, MEDICAID, SELFPAY ==
[2022-10-19 20:10] VITALS: BP 122/62; PULSE 80; RESP 16; TEMP 37.7; O2SAT 95; BMI 21.8
--- NOTE | 2022-10-19 20:23 | PC.NURSE ---
rounded on pt, provided blanket for her, reattached vs monitors and pt had them removed before leaving the room. will come back and reapply as pt tolerates.
[2022-10-19 20:30] VITALS: BP 121/63; PULSE 71; O2SAT 96
--- NOTE | 2022-10-19 20:49 | PC.NURSE ---
pt sleeping in bed, call light at bs
--- NOTE | 2022-10-19 20:55 | CT_ITS ---
PROCEDURE INFORMATION: Exam: CT Cervical Spine Without Contrast Exam date and time: 10/19/2022 9:15 PM Age: 61 years old Clinical indication: Injury or trauma; Fall; Additional info: Fall, hit head TECHNIQUE: Imaging protocol: Computed tomography of the cervical spine without contrast. Radiation optimization: All CT scans at this facility use at least one of these dose optimization techniques: automated exposure control; mA and/or kV adjustment per patient size (includes targeted exams where dose is matched to clinical indication); or iterative reconstruction. REPORTING DATA: Count of CT and Cardiac NM exams in prior 12 months: This patient has received [address] and 0 known cardiac nuclear medicine studies in the 12 months prior to the current study. COMPARISON: CT HEAD/BRAIN WO CON 10/19/2022 9:12 PM FINDINGS: Bones/joints: No acute fracture. Fused C7 and T1 vertebral bodies. No significant disc bulge or herniation. No severe spinal canal stenosis. Multilevel facet and uncovertebral joint hypertrophy. Mild bilateral bony foraminal stenosis at C3-C4. Mild right-sided bony foraminal stenosis at C4-C5. Moderate left-sided bony foraminal stenosis at C5-C6. Mild bilateral bony foraminal stenosis at C7-T1. Lungs: No acute findings. Soft tissues: Unremarkable. IMPRESSION: No acute findings.
--- NOTE | 2022-10-19 20:55 | CT_ITS ---
PROCEDURE INFORMATION: Exam: CT Head Without Contrast Exam date and time: 10/19/2022 9:12 PM Age: 61 years old Clinical indication: Injury or trauma; Fall; Additional info: Fall, on eliquis TECHNIQUE: Imaging protocol: Computed tomography of the head without contrast. Radiation optimization: All CT scans at this facility use at least one of these dose optimization techniques: automated exposure control; mA and/or kV adjustment per patient size (includes targeted exams where dose is matched to clinical indication); or iterative reconstruction. REPORTING DATA: Count of CT and Cardiac NM exams in prior 12 months: This patient has received [address] and 0 known cardiac nuclear medicine studies in the 12 months prior to the current study. COMPARISON: CT HEAD/BRAIN WO CON 06/07/2022 11:23 AM FINDINGS: Brain: Normal. No hemorrhage. Unremarkable white matter. No mass effect. Cerebral ventricles: No ventriculomegaly. Paranasal sinuses: Visualized sinuses are unremarkable. No fluid levels. Mastoid air cells: Visualized mastoid air cells are well aerated. Bones/joints: Unremarkable. No acute fracture. Soft tissues: Unremarkable. IMPRESSION: No acute intracranial abnormality.
--- NOTE | 2022-10-19 20:58 | HMH.EDGENADL ---
Discharge Plan Disposition Patient Disposition: Home, Self-Care Chief Complaint: Fall Prescriptions Prescriptions: No Action levothyroxine 88 mcg tablet 88 mcg PO DAILY duloxetine 20 mg capsule,delayed release(DR/EC) 20 mg PO DAILY clonazepam 1 mg tablet 1 mg PO BID sennosides [Natural Senna Laxative] 8.6 mg tablet 8.6 mg PO DAILY PRN tizanidine 2 mg tablet 2 mg PO TID PRN colestipol 1 gram tablet 1 g PO BID oxycodone 5 mg tablet 5 mg PO TID Qty: 90 0RF gabapentin 600 mg tablet 600 mg PO DAILY Qty: 30 2RF carvedilol 3.125 mg Tablet 3.125 mg PO BID amlodipine 10 mg Tablet 10 mg PO DAILY pantoprazole [Protonix] 40 mg Tablet,Delayed Release (Dr/Ec) 40 mg PO DAILY Eliquis 2.5 mg Tablet 2.5 mg PO BID quetiapine 100 mg tablet 100 mg PO HS melatonin 3 mg Tablet 3 mg PO HS PRN (Reason: supplement) acetaminophen 500 mg Tablet 500 mg PO TID folic acid 1 mg Tablet 1 mg PO DAILY vitamin B complex [Becotin] Capsule 1 cap PO DAILY Referrals Follow up/Referrals: Anton Rivera MD [Primary Care Provider] - See instructions Clinical Impressions Clinical Impression: Blunt head trauma Qualifiers: Encounter type: initial encounter Qualified Code(s): S09.8XXA - Other specified injuries of head, initial encounter Discharge ED Provider: Ton Ryan General Adult HPI General Chief complaint: Fall Stated complaint: fall Time Seen by Provider: 10/19/22 20:12 Mode of Arrival: EMS Source of Information: Patient and EMS Limitations: Physical Limitations Description of Symptoms (Recalled from ER Triage Doc. by RN): Patient to ED via [facility]. Resident of [facility]. Fell out of bed, unwitnessed fall, around 1999. Hit head. No LOC. C/O of headache, on Eliquis. PERRLA intact. Alert and oreinted x 3 History of Present Illness HPI narrative: This is a 61-year-old female with history of hypertension, hyperlipidemia, diabetes, chronic renal failure on dialysis, CVA and blood clots currently on Eliquis presenting with fall. Patient states that she was in bed when she reached to grab something off the bedside table and fell, striking her head. Denies loss of consciousness. Alert and oriented on my evaluation, not complaining of any pain and stating that she wants to go home to watch her TV shows. Denies blurry vision, neck or back pain, confusion, neurologic deficits in her upper or lower extremities, or any other concerns. Related Data Home Medications Medication Instructions Recorded Confirmed amlodipine 10 mg tablet 10 mg PO DAILY blood pressure 03/26/22 10/06/22 apixaban 2.5 mg tablet (Eliquis) 2.5 mg PO BID Blood thinner 03/26/22 10/06/22 carvedilol 3.125 mg tablet 3.125 mg PO BID blood pressure 03/26/22 10/06/22 pantoprazole 40 mg tablet,delayed 40 mg PO DAILY GERD 03/26/22 10/06/22 release (Protonix) quetiapine 100 mg tablet 100 mg PO HS sleep/mood 03/26/22 10/06/22 acetaminophen 500 mg tablet 500 mg PO TID . 06/30/22 10/06/22 folic acid 1 mg tablet 1 mg PO DAILY Supplement 06/30/22 10/06/22 melatonin 3 mg tablet 3 mg PO HS PRN supplement 06/30/22 10/06/22 vitamin B complex 1 cap PO DAILY Supplement 06/30/22 10/06/22 clonazepam 1 mg tablet 1 mg PO BID 10/06/22 10/06/22 colestipol 1 gram tablet 1 g PO BID 10/06/22 10/06/22 duloxetine 20 mg capsule,delayed 20 mg PO DAILY 10/06/22 10/06/22 release levothyroxine 88 mcg tablet 88 mcg PO DAILY 10/06/22 10/06/22 sennosides 8.6 mg tablet (Natural 8.6 mg PO DAILY PRN 10/06/22 10/06/22 Senna Laxative) tizanidine 2 mg tablet 2 mg PO TID PRN 10/06/22 10/06/22 Previous Rx's Medication Instructions Recorded gabapentin 600 mg tablet 600 mg PO DAILY #30 tabs 10/12/22 oxycodone 5 mg tablet 5 mg PO TID #90 tabs 10/12/22 Allergies Allergy/AdvReac Type Severity Reaction Status Date / Time adhesive tape Allergy Unknown Verified 10/06/22 14:26 cyclobenzaprine P[place]
[2022-10-19 21:00] VITALS: BP 124/64; PULSE 72; O2SAT 94
--- NOTE | 2022-10-19 21:01 | PC.NURSE ---
Rad aware of orders
--- NOTE | 2022-10-19 21:20 | PC.NURSE ---
pt returned from rad.
[2022-10-19 21:30] VITALS: BP 130/69; PULSE 71; O2SAT 96
--- NOTE | 2022-10-19 21:37 | PC.NURSE ---
Report called [facility]. Patient to be transported via [facility] as soon as available.
[2022-10-19 21:41] VITALS: BP 130/69; PULSE 73; RESP 16; TEMP 37.2; O2SAT 99
== END 2022-10-19 22:20 | disposition home or self-care (01) ==
PROVIDERS: Emergency Provider Emergency Medicine; PCP Emergency Medicine
DX: S09.8XXA Other specified injuries of head, initial encounter (principal); E11.22 Type 2 diabetes mellitus with diabetic chronic kidney disease; I12.0 Hypertensive chronic kidney disease with stage 5 chronic kidney disease or end stage renal disease; N18.6 End stage renal disease; E78.5 Hyperlipidemia, unspecified; Z79.01 Long term (current) use of anticoagulants; W06.XXXA Fall from bed, initial encounter; D46.9 Myelodysplastic syndrome, unspecified; F17.210 Nicotine dependence, cigarettes, uncomplicated
CPT/HCPCS: 70450; 72125; 99285

== ENCOUNTER 2023-01-12 13:35 | Day surgery (SDC) | payer MEDICARE, MEDICAID, SELFPAY ==
[2023-01-12 13:53] VITALS: BP 171/83; PULSE 66; RESP 18; TEMP 36.4; O2SAT 97; BMI 20.9
--- NOTE | 2023-01-12 13:54 | EXP.ANES.CKL ---
[facility] Disclaimer: The information contained in this section may have been updated after the patient was seen, as this information can be updated by other users. Medical History Anemia Chronic back pain greater than 3 months duration CKD (chronic kidney disease) CVA (cerebral vascular accident) Myelodysplastic syndrome Surgical History History of delivery History of cholecystectomy History of hysterectomy History of laparoscopy History of tonsillectomy Previous back surgery Family History Other Family history of cancer Heart attack Social History Smoking Status: Current every day smoker tobacco type: cigarettes packs per day: 1 alcohol intake: never substance use type: former substance user, marijuana, opiates and prescription drug current occupational status: unemployed Travel in the last 8 weeks: None [facility] Anesthesia Checklist Patient Identification Patient Identification: Arm Band and Verbal (Name & ) Structural Data Admitted From: Home Planned Operative Procedure/s: EGD Consent for Planned Operative Procedure(s) Verified: Yes NPO Status Verified Time NPO: 08:00 (Protein shake) Additional verifications Anesthesia Reactions: No Airway Assessment Mallampati Score:: Class II C-Spine Mobility Assessed: Yes TMJ Mobility Assessed: Yes Dentition: Dentures-poor fitting Neurological Assessment Level of Consciousness: Awake Hx Seizures: No Numbness or tingling in extremities: No Anesthesia Plan Anesthesia Risk discussed: Yes Anesthesia Plan: Verified ASA Class: III Anesthesia Type: MAC
[2023-01-12 14:21] LABS: POC Glucose,Bedside 75 (70-110)
[2023-01-12 14:23] VITALS: O2SAT 95
--- NOTE | 2023-01-12 14:27 | HMH.SCOPE ---
Procedure: Date: 01/12/23 Patient Date of :: 1960 Procedure Performed:: Diagnostic EGD Indications:: Nausea/Vomiting, anemia Performing Provider:: Hemanth Stapleton MD Referring Provider:: Elham Stapleton APRN Sedation:: Propofol Procedure:: The gastroscope was gently passed through the incisoral orifice into the oral cavity and under direct visualization the esophagus was intubated. The endoscope was passed down the esophagus, through the stomach, and into the duodenum. Color, texture, mucosa, and anatomy of the esophagus, stomach, and duodenum were carefully examined with the scope. Findings:: Oropharynx: normal Esophagus: normal EG Junction: intact at 40 cm Cardia: normal Fundus: normal Body: normal Antrum: normal Duodenal bulb: normal Duodenum (second and third portion): normal Impression: Normal EGD. No evidence of ulcer disease or hiatus hernia Anemia of chronic disease (Renal) N/V most likely secondary to narcotic load Recommendations:: F/U GI clinic, Decrease daily narcotic load. Complications:: None Estimated blood obtained (mL): 0 Colonoscopy Component Colonoscopy Component Was a colonoscopy performed during today's procedure?: No
[2023-01-12 14:30] VITALS: BP 150/72; PULSE 89; RESP 18; TEMP 36.1; O2SAT 92
[2023-01-12 14:40] VITALS: BP 150/79; PULSE 70; RESP 18; O2SAT 98
[2023-01-12 14:50] VITALS: BP 155/77; PULSE 70; RESP 18; O2SAT 98
[2023-01-12 14:56] VITALS: BP 146/61; PULSE 73; RESP 18; O2SAT 97
--- NOTE | 2023-01-12 14:58 | SUR.PHASEII ---
attempted to call report to [facility], informed pt's nurse is tied up. left message with staff and Jing who was with patient.
== END 2023-01-12 14:59 | disposition home or self-care (01) ==
PROVIDERS: PCP Emergency Medicine; Visit Provider Internal Medicine Gastroenterology
PROC: 0DJ08ZZ Inspection of Upper Intestinal Tract, Via Natural or Artificial Opening Endoscopic (ICD-10-PCS; CPT 43235; principal; 2023-01-12 14:00)
DX: D63.1 Anemia in chronic kidney disease (principal); R11.2 Nausea with vomiting, unspecified; Z79.891 Long term (current) use of opiate analgesic
CPT/HCPCS: 43235; 82962